=== PATIENT | female | born 1940 | race Caucasian/White ===

== ENCOUNTER 2018-02-20 19:37 | Inpatient (IN) ==
[2018-02-20 20:15] LABS: Basophils % 0.4 %; Eosinophils # 0.1 K/mcL (0.0-0.6); Hematocrit 40.5 % (35.3-44.9); Hemoglobin 13.8 g/dL (11.5-15.4); Immature Granulocytes % 0.5 % (0-4); Lymphocytes # 0.6 K/mcL (0.6-4.6); Lymphocytes % 6.6 %; Mean Corpuscular HGB Conc 34.1 g/dL (31.6-35.5); Mean Corpuscular Hemoglobin 31.5 pg (28.0-33.3); Mean Corpuscular Volume 92.5 fL (83.0-100.0); Mean Platelet Volume 10.5 fL (9.4-12.4); Monocytes # 0.5 K/mcL (0.0-1.3); Monocytes % 5.1 %; Platelet Count 230 K/mcL (140-400); Red Blood Count 4.38 M/mcL (3.82-4.97); Red Cell Distribution Width 12.6 % (11.5-14.5); Segmented Neutrophils % 86.4 %
[2018-02-20 20:20] LABS: INR 1.1
[2018-02-20] MEDS ORDERED: 0.9 % Sodium Chloride 1,000 ML IVC ONE (20:22)
[2018-02-20] MEDS ORDERED: Piperacillin/Tazobactam 3.375 GM in 0.9 % Sodium Chloride Mini Bag 100 ML IVPB ONE (20:36)
--- NOTE | 2018-02-20 20:40 | Emergency Department Note ---
Disposition Clinical Impression: Cellulitis of left foot Disposition: Admitted As Inpatient Condition: Good Referrals: Ricco Childers MD [Primary Care Provider] - Forms: ED Satisfaction Letter, Work/School Release Time of Disposition: 20:43 Fever HPI - General Chief Complaint: ED General Medical Stated Complaint: Fever Time Seen by Provider: 02/20/18 20:22 Source: patient Limitations: no limitations Nursing Notes Reviewed: Yes Vital Signs Reviewed: Yes - History of Present Illness HPI Narrative: 77 year old female presents to the ED with complaints of fever. She states that she was seen here on Friday for left foot cellulitis and was recommended for admission but declined admision and wanted to try outpatient ABX trial. It seems as thoguh she has failed outpatinet therapy. She states that the rednss although not as indurated is now streaking up the foot into the ankle and chen. PAtinet states that she developed a fever of 102.8F today and that she has develope mild nasuea. Patient states that she is agreeable to admission now. She is also experncing chillls with generalized weakness. States she has CKD3 and does have recurent UTIs but this is not what is happening now because she is very aware when she has a UTI - Related Data Home Medications Medication Instructions Recorded Confirmed ASA/Acetaminophn/Mag/Alh/Caff 04/27/16 Clonidine 04/27/16 Cranberry 04/27/16 Fish Oil 04/27/16 Losartan 04/27/16 Omeprazole 04/27/16 04/27/16 Oscal 04/27/16 Toprol Xl 04/27/16 Valium 04/27/16 Previous Rx's Medication Instructions Recorded Nitrofurantoin (BID) [Macrobid] 100 mg PO BID #10 capsule 04/27/16 Phenazopyridine HCl [Pyridium] 200 mg PO TID #6 tab 04/27/16 Clindamycin [Cleocin] 150 mg PO Q6HR #20 capsule 02/17/18 Doxycycline 100 mg PO BID #40 capsule 02/17/18 Allergies Allergy/AdvReac Type Severity Reaction Status Date / Time prednisone AdvReac Hypertensio Verified 04/18/16 08:46 n Bflzsdm-[id number] Reductase AdvReac Cramping Verified 04/18/16 08:46 Inhibitor of the [Statins] Muscles Constitutional: Reports: fever, chills, weakness. Denies: weight change Eyes: Denies: eye pain, eye discharge, vision change ENT ED: Denies: ear pain, throat pain, dental pain, hearing loss, epistaxis, congestion, dysphagia Cardiovascular: Denies: chest pain, palpitations, dyspnea on exertion, edema, syncope Respiratory: Denies: cough, dyspnea, wheezes, hemoptysis, stridor Gastrointestinal: Denies: abdominal pain, nausea, vomiting, diarrhea, constipation, hematemesis, melena, hematochezia Genitourinary: Denies: dysuria, frequency, hematuria, discharge Musculoskeletal: Reports: other (lef toot cellulitis). Denies: back pain, neck pain, arthralgia, myalgia Integumentary: Denies: rash, abrasion, lesions Neurological: Denies: headache, weakness, numbness, paresthesias, confusion, abnormal gait, vertigo Psychiatric: Denies: anxiety, depression, suicidal thoughts, homicidal thoughts , auditory hallucinations, visual hallucinations Endocrine: Denies: fatigue Hematological/Lymphatic: Denies: easy bleeding, easy bruising Allergic/Immunologic: Denies: facial swelling, urticaria Fever PMH - Past Medical History Medical history: Reports: hypertension, other Psychiatric history: Reports: no psych history - Social History Smoking Status: Never smoker Alcohol use: Reports: none Drug use: Reports: none Physical Exam - General Limitations: no limitations General appearance: alert, in no apparent distress - Head Head exam: atraumatic, normocephalic, normal inspection - Eye Eye exam: Present: normal appearance, PERRL, EOMI - Expanded Eye Exam Pupils: Bilateral: reactive - ENT ENT exam: normal exam, normal oropharynx, mucous membranes moist - Expanded ENT Exam External ear exam: Present: normal external inspection Mouth exam: Present: normal external inspection Teeth exam: Present: normal inspection Throat exam: Present: normal inspection - Neck Neck exam: Present: normal inspection, full ROM, trachea midline - Chest Chest inspection: Present: normal inspection, symmetric chest wall rise - Respiratory Respiratory exam: Present: normal lung sounds bilaterally - Cardiovascular Cardiovascular exam: Present: regular rate, normal rhythm, normal heart sounds - Abdominal Exam Abdominal exam: Present: soft, Non-Tender. Absent: tenderness, distention, guarding, rebound, rigidity - Extremities Exam Extremities exam: Present: normal inspection, full ROM. Absent: tenderness, pedal edema - Expanded Upper Extremity Exam Shoulder exam: Present: normal inspection, full ROM Arm exam: Present: normal inspection, full ROM Elbow exam: Present: normal inspection, full ROM Forearm/Wrist exam: Present: normal inspection, full ROM Hand exam: Present: normal inspection, full ROM Vascular exam: Normal: capillary refill, radial pulse - Expanded Lower Extremity Exam Hip/Pelvis exam: Present: normal inspection, full ROM Upper leg exam: Present: normal inspection, full ROM Knee exam: Present: normal inspection, full ROM Lower leg exam: Present: normal inspection, full ROM Ankle exam: Present: normal inspection, full ROM Foot/toe exam: Present: normal inspection, full ROM, tenderness, erythema 1 - induration not fluncutance with streaking up her left ankle and chen and into her toes Neurovascular/Tendon exam: Absent: motor deficit, sensory deficit, tendon deficit - Back Exam Back exam: Present: normal inspection, full ROM. Absent: tenderness - Neurological Exam Neurological exam: Present: alert, oriented X3 - Expanded Neurological Exam Patient oriented to: Present: person, place, time Coma Scale Eye Opening: Spontaneous Coma Scale Motor Response: Obeys Commands Coma Scale Verbal Response: Oriented Coma Scale Total: 15 - Psychiatric Psychiatric exam: Present: normal affect, normal mood - Skin Skin exam: Present: warm, dry, intact, normal color Course Course Narrative: we will start IVF, vanco, zosyn and then admit to medicine or left foot cellulitis. patient is agreeable to admission, Do not believe there is any area for to drain - Consultations Consultation #1: discussed case with Dr. Townsend and she accepts aptient to his service. Patient is agreeable to admission Time: 21:14 Vital Signs Temperature 99 F 02/20/18 19:43 Pulse Rate 88 02/20/18 19:43 Respiratory Rate 18 02/20/18 19:43 Blood Pressure 114/68 02/20/18 19:43 O2 Sat by Pulse Oximetry 95 02/20/18 19:43 Temperature 99 F 02/20/18 19:43 Pulse Rate 88 02/20/18 19:43 Respiratory Rate 18 02/20/18 19:43 Blood Pressure 114/68 02/20/18 19:43 O2 Sat by Pulse Oximetry 95 02/20/18 19:43 Oxygen Delivery Oxygen Delivery Room Air Fever - Medical Records Medical records reviewed: Yes I reviewed the patient's medical records. - Lab Data Lab results reviewed: Yes I reviewed the patient's lab results. Result diagrams: 02/20/18 19:48 02/20/18 19:48 Lab Results 02/20/18 02/20/18 02/20/18 Range/Units 19:48 19:48 19:48 WBC 9.3 (4.3-11.1) K/mcL RBC 4.38 (3.82-4.97) M/mcL Hgb 13.8 (11.5-15.4) g/dL Hct 40.5 (35.3-44.9) % MCV 92.5 (83.0-100.0) fL MCH 31.5 (28.0-33.3) pg MCHC 34.1 (31.6-35.5) g/dL RDW 12.6 (11.5-14.5) % Plt Count 230 (140-400) K/mcL MPV 10.5 (9.4-12.4) fL Immature Gran % 0.5 (0-4) % Seg Neutrophils % 86.4 % Lymphocytes % 6.6 % Monocytes % 5.1 % Eosinophils % 1.0 % Basophils % 0.4 % Neutrophils # 8.0 (1.6-8.9) K/mcL Lymphocytes # 0.6 (0.6-4.6) K/mcL Monocytes # 0.5 (0.0-1.3) K/mcL Eosinophils # 0.1 (0.0-0.6) K/mcL Basophils # 0.0 (0.0-0.2) K/mcL PT 12.0 (9.4-12.1) Seconds INR 1.1 APTT 27.7 (26.0-36.0) Seconds Sodium 133 L (136-145) mEq/L Potassium 3.5 (3.5-5.1) mEq/L Chloride 105 (98-107) mEq/L Carbon Dioxide 17 L (23-29) mEq/L BUN 8 (8-23) mg/dL Creatinine 1.40 H (0.60-1.20) mg/dL Est GFR ( Amer) 44 L (> 60) Est GFR (Non-Af Amer) 36 L (> 60) BUN/Creatinine Ratio 6 (6-26) Glucose 125 H (70-105) mg/dL Calculated Osmolality 276 L (280-300) Lactic Acid (0.5-2.2) mmol/L Calcium 9.6 (8.6-10.3) mg/dL Phosphorus (2.7-4.5) mg/dL Magnesium (1.6-2.6) mg/dL Total Bilirubin (0.3-1.0) mg/dL Direct Bilirubin (0.0-0.2) mg/dL Indirect Bilirubin (0.0-1.2) mg/dL AST (13-39) Units/L ALT (7-52) Units/L Alkaline Phosphatase (34-104) Units/L Troponin I < 0.03 (< 0.04) ng/mL B-Natriuretic Peptide (Less than 100) pg/mL Serum Total Protein (6.4-8.9) g/dL Albumin (3.5-5.7) g/dL Globulin (2.4-3.5) g/dL Albumin/Globulin Ratio (1.1-2.2) Lipase (11-82) Units/L 02/20/18 02/20/18 02/20/18 Range/Units 19:55 20:22 20:24 WBC (4.3-11.1) K/mcL RBC (3.82-4.97) M/mcL Hgb (11.5-15.4) g/dL Hct (35.3-44.9) % MCV (83.0-100.0) fL MCH (28.0-33.3) pg MCHC (31.6-35.5) g/dL RDW (11.5-14.5) % Plt Count (140-400) K/mcL MPV (9.4-12.4) fL Immature Gran % (0-4) % Seg Neutrophils % % Lymphocytes % % Monocytes % % Eosinophils % % Basophils % % Neutrophils # (1.6-8.9) K/mcL Lymphocytes # (0.6-4.6) K/mcL Monocytes # (0.0-1.3) K/mcL Eosinophils # (0.0-0.6) K/mcL Basophils # (0.0-0.2) K/mcL PT (9.4-12.1) Seconds INR APTT (26.0-36.0) Seconds Sodium (136-145) mEq/L Potassium (3.5-5.1) mEq/L Chloride (98-107) mEq/L Carbon Dioxide (23-29) mEq/L BUN (8-23) mg/dL Creatinine (0.60-1.20) mg/dL Est GFR ( Amer) (> 60) Est GFR (Non-Af Amer) (> 60) BUN/Creatinine Ratio (6-26) Glucose (70-105) mg/dL Calculated Osmolality (280-300) Lactic Acid 1.9 (0.5-2.2) mmol/L Calcium (8.6-10.3) mg/dL Phosphorus 1.7 L (2.7-4.5) mg/dL Magnesium 1.1 L (1.6-2.6) mg/dL Total Bilirubin 0.5 (0.3-1.0) mg/dL Direct Bilirubin 0.1 (0.0-0.2) mg/dL Indirect Bilirubin 0.4 (0.0-1.2) mg/dL AST 21 (13-39) Units/L ALT 12 (7-52) Units/L Alkaline Phosphatase 51 (34-104) Units/L Troponin I (< 0.04) ng/mL B-Natriuretic Peptide 121 H (Less than 100) pg/mL Serum Total Protein 7.1 (6.4-8.9) g/dL Albumin 4.1 (3.5-5.7) g/dL Globulin 3.0 (2.4-3.5) g/dL Albumin/Globulin Ratio 1.4 (1.1-2.2) Lipase 28 (11-82) Units/L - Radiology Data Radiology results reviewed: Yes I reviewed the patient's radiology results. - EKG Data EKG attestation: Yes I reviewed and interpreted this EKG. EKG results narrative: NSR with rate of 73. NO STEMI. normla intervals. no old ekg. 2052
[2018-02-20 20:43] LABS: Activated Partial Thrombo Time 27.7 Seconds (26.0-36.0); Troponin I < 0.03 ng/mL (< 0.04)
[2018-02-20 20:44] LABS: BUN/Creatinine Ratio 6 (6-26); Blood Urea Nitrogen 8 mg/dL (8-23); Calcium 9.6 mg/dL (8.6-10.3); Carbon Dioxide 17 mEq/L (23-29); Chloride 105 mEq/L (98-107); Glucose 125 mg/dL (70-105); Osmolality,Calculated 276 (280-300); Potassium 3.5 mEq/L (3.5-5.1); Sodium 133 mEq/L (136-145); eGFR For African Americans 44 (> 60); eGFR For Non-African Americans 36 (> 60)
[2018-02-20 21:01] LABS: Albumin 4.1 g/dL (3.5-5.7); Albumin/Globulin Ratio 1.4 (1.1-2.2); Bilirubin,Direct 0.1 mg/dL (0.0-0.2); Bilirubin,Indirect 0.4 mg/dL (0.0-1.2); Bilirubin,Total 0.5 mg/dL (0.3-1.0); Magnesium 1.1 mg/dL (1.6-2.6); Phosphorous 1.7 mg/dL (2.7-4.5); Total Protein 7.1 g/dL (6.4-8.9)
--- NOTE | 2018-02-20 21:41 | Internal Med History&Physical ---
Date of Encounter: 02/21/18 Time of Encounter: 09:00 Assessment and Plan (1) Cellulitis of left foot Status: Acute We will admit the patient to medical floor Start the patient on empiric antibiotics for left foot cellulitis Start patient on cautious IV hydration with isotonic saline Obtain blood cultures (2) Hypertension Status: Chronic We will continue home medication Qualifiers: Hypertension type: essential hypertension Qualified Code(s): I10 - Essential (primary) hypertension (3) Hypomagnesemia Status: Acute We will replace magnesium and continue to monitor (4) CKD (chronic kidney disease) Status: Chronic Creatinine is at baseline. Qualifiers: Chronic kidney disease stage: stage 3 (moderate) Qualified Code(s): N18.3 - Chronic kidney disease, stage 3 (moderate) (5) Metabolic acidosis Status: Chronic Most likely secondary to impaired ammoniagenesis and the setting of the daily (6) Chronic kidney disease-mineral and bone disorder Status: Chronic We would and obtain a vitamin D level as well as intact parathyroid hormone. (7) DVT prophylaxis Status: Resolved Start the patient on SCDs as well as heparin 5000 twice a day Internal Medicine - H&P: HPI Chief complaint: fever History of present illness: 77 year old female presents to the ED with cellulitis of the left foot that was diagnosed on last Friday and patient was supposed to be admitted for further evaluation and management however she declined admission and preferred to continue antibiotic as an outpatient. The patient came back to the ER with complaint of fever and worsening of left foot erythema, tenderness as well as chillls with generalized weakness. As per ER staff ultrasound was performed and revealed no signs of fluid collection or abscess formation she was started and antibiotics and was admitted to the hospital for further evaluation and management of left foot cellulitis Past Med Surg Social Fam HX - Past Medical History Medical history: hypertension, other Psychiatric history: no psych history - Social History Smoking Status: Never smoker Smokeless Tobacco Status: No Alcohol use: none Drug use: none Internal Medicine - H&P: Meds Amlodipine Besylate 10 mg PO DAILY 02/21/18 [History] Aspirin [Adult Aspirin Regimen] 81 mg PO DAILY 02/21/18 [History] Cholecalciferol (D-3) [Vitamin D] 5,000 unit PO DAILY 02/21/18 [History] Colesevelam HCl [Welchol] 1 pack PO DAILY 02/21/18 [History] Meclizine HCl [Verticalm] 25 mg PO TID PRN 02/21/18 [History] Saliva Stimulant [Biotene Moisturizing Rinse] 1 each PO TID PRN 02/21/18 [ History] Sucralfate [Carafate] 1 gm PO 0730,1630 02/21/18 [History] Sucralfate [Carafate] 2 gm PO HS 02/21/18 [History] Calcium Carbonate [Calcium] 500 mg PO BID 02/22/18 [History] Cholestyramine 8 gm PO BID 02/22/18 [History] Colesevelam HCl [Welchol] 3.75 gm PO DAILY 02/22/18 [History] Doxycycline Hyclate 02/22/18 [History] Losartan Potassium [Cozaar] 100 mg PO DAILY 02/22/18 [History] Metoprolol Succinate 200 mg PO DAILY 02/22/18 [History] Omeprazole [PriLOSEC] 40 mg PO DAILY 02/22/18 [History] cloNIDine HCl [CloNIDine HCl] 0.1 mg PO 02/22/18 [History] diazePAM [Valium] 5 mg PO Q6H PRN 02/22/18 [History] Amoxicillin/Clavulanate [Augmentin] 500 mg PO BIDWM #10 tablet 02/25/18 [Rx] 3 Allergy/AdvReac Type Severity Reaction Status Date / Time prednisone AdvReac Hypertensio Verified 04/18/16 08:46 n Vyrvlml-Qti-Yuj Reductase AdvReac Cramping Verified 04/18/16 08:46 Inhibitor of the [Statins] Muscles All Systems PM: A 10-system review of systems was performed and is negative for pertinent findings except as documented above in the HPI. - Constitutional Constitutional: fatigue, malaise, no chills, no fever(s), no night sweats - Cardiovascular Cardiovascular ROS IM: no chest pain, no diaphoresis, no dyspnea, no lightheadedness, no palpitations, no syncope - Respiratory Respiratory: no cough, no dyspnea, no wheezing, no excessive phlegm production - Gastrointestinal Gastrointestinal: nausea, no abdominal pain, no diarrhea, no hematemesis, no hematochezia, no melena, no vomiting - Genitourinary Genitourinary: no change in urinary stream, no dysuria, no flank pain, no hematuria - Integumentary Integumentary IM: erythema, new lesions, rash - Neurological Neurological ROS: no confusion, no convulsions, no focal weakness, no numbness, no tingling, no tremor(s) - Constitutional Vitals: Temp Pulse Resp BP Pulse Ox 99 F 88 18 114/68 95 02/20/18 19:43 02/20/18 19:43 02/20/18 19:43 02/20/18 19:43 02/20/18 19:43 General appearance: Present: A&O X 3 - Head Head exam: Present: atraumatic, normocephalic - Eye Eye exam: Present: PERRL, conjuntiva pink, sclera anicteric Pupils: Present: PERRL - Neck Neck exam general surgery: Present: supple, trachea midline. Absent: lymphadenopathy - Respiratory Respiratory exam: Present: CTAB. Absent: accessory muscle use, rales, rhonchi, wheezes - Cardiovascular Cardiovascular exam: Present: RRR, +S1, +S2. Absent: diastolic murmur, gallop, rubs, systolic murmur - GI/Abdominal GI/Abdominal exam: Present: normal bowel sounds, soft, no peritoneal signs. Absent: distended, tenderness - Extremities Exam Extremities exam: Present: warm, radial pulses palpable and symmetrical. Absent : calf tenderness, cyanotic, pedal edema Internal Med - H&P Results - Labs CBC & Chem 7: 02/25/18 01:10 02/25/18 01:10
[2018-02-20] MEDS ORDERED: Acetaminophen 325 MG TABLET PO PRN (22:16)
[2018-02-20] MEDS ORDERED: Naloxone 0.4 MG/ML INJ IVP PRN (22:16)
[2018-02-20] MEDS: 0.9 % Sodium Chloride 1,000 ML IVC SCH (22:55)
[2018-02-21] MEDS: *HR* Heparin 5,000 UNIT/ML VIAL SQ SCH ×2 (05:32→18:20)
[2018-02-21] MEDS: Piperacillin/Tazobactam 3.375 GM in 0.9 % Sodium Chloride Mini Bag 100 ML IVPB SCH (05:32)
[2018-02-21 06:41] LABS: Basophils % 0.5 %; Eosinophils # 0.1 K/mcL (0.0-0.6); Eosinophils % 1.5 %; Hematocrit 32.4 % (35.3-44.9); Immature Granulocytes % 0.3 % (0-4); Lymphocytes # 1.6 K/mcL (0.6-4.6); Mean Corpuscular Volume 91.3 fL (83.0-100.0); Mean Platelet Volume 11.1 fL (9.4-12.4); Monocytes # 0.6 K/mcL (0.0-1.3); Monocytes % 9.6 %; Neutrophils # 4.1 K/mcL (1.6-8.9); Platelet Count 159 K/mcL (140-400); Red Blood Count 3.55 M/mcL (3.82-4.97); Red Cell Distribution Width 12.6 % (11.5-14.5); Segmented Neutrophils % 63.1 %
[2018-02-21 06:49] LABS: INR 1.1; Prothrombin Time 11.4 Seconds (9.4-12.1)
[2018-02-21 06:51] LABS: Activated Partial Thrombo Time 32.6 Seconds (26.0-36.0)
[2018-02-21 06:59] LABS: Albumin 3.2 g/dL (3.5-5.7); Albumin/Globulin Ratio 1.2 (1.1-2.2); Bilirubin,Total 0.6 mg/dL (0.3-1.0); Calcium 8.8 mg/dL (8.6-10.3); Chol/HDL Ratio 4.8 (0-4.9); Globulin 2.7 g/dL (2.4-3.5); Magnesium 1.8 mg/dL (1.6-2.6); Phosphorous 2.6 mg/dL (2.7-4.5); Potassium 3.5 mEq/L (3.5-5.1); Total Protein 5.9 g/dL (6.4-8.9)
[2018-02-21] MEDS: 0.9 % Sodium Chloride 1,000 ML IVC SCH (08:39)
--- NOTE | 2018-02-21 13:57 | Internal Med Progress Note ---
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 There was also noted mild dorsal midfoot subcutaneous edemaThere was no osteomyelitis Continue Vancomycin and Zosyn renally dosed. (2) CKD (chronic kidney disease) Current Visit: Yes Status: Acute Qualifiers: Chronic kidney disease stage: stage 3 (moderate) Qualified Code(s): N18.3 - Chronic kidney disease, stage 3 (moderate) (3) Chronic kidney disease-mineral and bone disorder Current Visit: Yes Status: Acute Assessment and plan: Renally dose medications, CrCl currently 14 (4) Hypertension Current Visit: Yes Status: Acute Assessment and plan: Resume home medications Qualifiers: Hypertension type: essential hypertension Qualified Code(s): I10 - Essential (primary) hypertension (5) Metabolic acidosis Current Visit: Yes Status: Acute (6) DVT prophylaxis Current Visit: Yes Status: Acute Assessment and plan: Heparin - Subjective Interval history: No acute events. Patient does complain of flushing in her face that she says happens when she doesn't take her blood pressure medications. Vitals were taken at bedside and BP and HR were normal. She denies fevers/chills, n/v - Constitutional Vitals: Temp Pulse Resp BP Pulse Ox 98.4 F 75 15 120/68 97 02/21/18 10:46 02/21/18 10:46 02/21/18 10:46 02/21/18 10:46 02/21/18 10:46 General appearance: Present: A&O X 3 - Head Head exam: Present: atraumatic, normocephalic - Eye Eye exam: Present: PERRL, conjuntiva pink, sclera anicteric Pupils: Present: PERRL - Neck Neck exam general surgery: Present: supple, trachea midline. Absent: lymphadenopathy - Respiratory Respiratory exam: Present: CTAB. Absent: accessory muscle use, rales, rhonchi, wheezes - Cardiovascular Cardiovascular exam: Present: RRR, +S1, +S2. Absent: diastolic murmur, gallop, rubs, systolic murmur - GI/Abdominal GI/Abdominal exam: Present: normal bowel sounds, soft, no peritoneal signs. Absent: distended, tenderness - Extremities Exam Extremities exam: Present: warm, radial pulses palpable and symmetrical. Absent : calf tenderness, cyanotic, pedal edema Additional comments: Left foot with dorsal surface with erythema and edema some tenderness noted. - Neurological Exam Neurological exam: Present: CN II-XII intact, oriented X3, no focal deficits. Absent: pronater drift, facial droop, speech deficit - Skin Skin exam: Present: dry, intact Internal Medicine: Result - Labs CBC & Chem 7: 02/21/18 05:49 02/21/18 05:49 Labs: Short CBC 02/21/18 Range/Units 05:49 WBC 6.6 (4.3-11.1) K/mcL Hgb 11.0 L D (11.5-15.4) g/dL Hct 32.4 L (35.3-44.9) % Plt Count 159 (140-400) K/mcL Neutrophils # 4.1 (1.6-8.9) K/mcL BMP 02/21/18 05:49 Sodium 134 L Potassium 3.5 Chloride 106 Carbon Dioxide 23 BUN 8 Creatinine 1.32 H Glucose 106 H Calcium 8.8 Liver Function 02/21/18 Range/Units 05:49 Total Bilirubin 0.6 (0.3-1.0) mg/dL AST 21 (13-39) Units/L ALT 15 (7-52) Units/L Alkaline Phosphatase 42 (34-104) Units/L Albumin 3.2 L (3.5-5.7) g/dL - ABG Interpretation ABG results: PT/INR, D-dimer PT 11.4 Seconds (9.4-12.1) 02/21/18 05:49 Consult Discharge Plan - Plan Referrals: Ricco Childers MD [Primary Care Provider] -
[2018-02-21] MEDS ORDERED: Metoprolol XL (24 HR) Succ 50 MG TAB.ER.24H PO ONE (14:15)
[2018-02-21] MEDS ORDERED: cloNIDine HCl 0.1 MG TABLET PO ONE (14:16)
[2018-02-21] MEDS ORDERED: amLODIPine 5 MG TABLET PO ONE (14:16)
[2018-02-21] MEDS ORDERED: Piperacillin/Tazobactam 3.375 GM in 0.9 % Sodium Chloride Mini Bag 100 ML IVPB SCH (16:00)
[2018-02-21] MEDS ORDERED: Sucralfate 1 GM TABLET PO SCH (16:30)
[2018-02-21] MEDS ORDERED: diazePAM 5 MG TABLET PO SCH (21:00)
[2018-02-21] MEDS: Sucralfate 1 GM TABLET PO SCH (21:09)
--- NOTE | 2018-02-21 23:59 | Event Note ---
Date of Encounter: 02/21/18 Time of Encounter: 22:50 Alerted by pts. nurse the patient did ambulate to the bathroom and reported diarrhea and feeling weak. Patient here for cellulitis of the left foot. Vital signs: BP 1:30/74, HR 71, SPO2 100% room air, temp 99.0F. EKG showed sinus rhythm with nonspecific ST and T-wave abnormality. Went to see patient who was resting in bed. Patient reported brief chest pain with radiation to left neck which have both resolved. Patient stated she was also short of breath after returning from the bathroom. Patient denied symptoms currently. Patient was instructed to alert nurse if symptoms returned or she became short of breath so nurse could alert provider. Pt. verbalized understanding. Pt. to be monitored closely.
[2018-02-22] MEDS: *HR* Heparin 5,000 UNIT/ML VIAL SQ SCH ×2 (06:21→18:31)
[2018-02-22 08:22] LABS: Basophils % 0.9 %; Eosinophils # 0.2 K/mcL (0.0-0.6); Eosinophils % 3.5 %; Hematocrit 35.9 % (35.3-44.9); Hemoglobin 12.3 g/dL (11.5-15.4); Immature Granulocytes % 0.2 % (0-4); Lymphocytes # 1.7 K/mcL (0.6-4.6); Lymphocytes % 39.1 %; Mean Corpuscular HGB Conc 34.3 g/dL (31.6-35.5); Mean Corpuscular Hemoglobin 31.2 pg (28.0-33.3); Mean Corpuscular Volume 91.1 fL (83.0-100.0); Monocytes # 0.3 K/mcL (0.0-1.3); Monocytes % 7.6 %; Neutrophils # 2.1 K/mcL (1.6-8.9); Platelet Count 194 K/mcL (140-400); Red Blood Count 3.94 M/mcL (3.82-4.97); Red Cell Distribution Width 12.7 % (11.5-14.5); Segmented Neutrophils % 48.7 %
[2018-02-22 08:57] LABS: Calcium 8.9 mg/dL (8.6-10.3); Potassium 3.3 mEq/L (3.5-5.1)
[2018-02-22] MEDS: Cholecalciferol (D-3) 1,000 UNIT TABLET PO SCH (09:36)
[2018-02-22] MEDS: Aspirin Enteric Coated 81 MG Tablet PO SCH (09:37)
[2018-02-22] MEDS ORDERED: cloNIDine HCl 0.1 MG TABLET PO SCH (10:00)
[2018-02-22] MEDS: diazePAM 5 MG TABLET PO SCH ×4 (11:17→21:04)
[2018-02-22] MEDS ORDERED: cloNIDine HCl 0.1 MG TABLET PO ONE (11:30)
--- NOTE | 2018-02-22 13:18 | Internal Med Progress Note ---
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 There was also noted mild dorsal midfoot subcutaneous edemaThere was no osteomyelitis Continue Vancomycin and Zosyn renally dosed. Tenderness improved but erythema appears slightly worse, no edema. Pulses palpable and equal (2) CKD (chronic kidney disease) Current Visit: Yes Status: Acute Qualifiers: Chronic kidney disease stage: stage 3 (moderate) Qualified Code(s): N18.3 - Chronic kidney disease, stage 3 (moderate) (3) Chronic kidney disease-mineral and bone disorder Current Visit: Yes Status: Acute Assessment and plan: Renally dose medications, Cr CL 38 (4) Hypertension Current Visit: Yes Status: Acute Assessment and plan: Resume home medications Qualifiers: Hypertension type: essential hypertension Qualified Code(s): I10 - Essential (primary) hypertension (5) Metabolic acidosis Current Visit: Yes Status: Acute (6) DVT prophylaxis Current Visit: Yes Status: Acute Assessment and plan: Heparin - Subjective Interval history: No acute events. - Constitutional Vitals: Temp Pulse Resp BP Pulse Ox 98.5 F 82 15 165/75 95 02/22/18 10:53 02/22/18 10:53 02/22/18 10:53 02/22/18 10:53 02/22/18 10:53 General appearance: Present: A&O X 3 - Head Head exam: Present: atraumatic, normocephalic - Eye Eye exam: Present: PERRL, conjuntiva pink, sclera anicteric Pupils: Present: PERRL - Neck Neck exam general surgery: Present: supple, trachea midline. Absent: lymphadenopathy - Respiratory Respiratory exam: Present: CTAB. Absent: accessory muscle use, rales, rhonchi, wheezes - Cardiovascular Cardiovascular exam: Present: RRR, +S1, +S2. Absent: diastolic murmur, gallop, rubs, systolic murmur - GI/Abdominal GI/Abdominal exam: Present: normal bowel sounds, soft, no peritoneal signs. Absent: distended, tenderness - Extremities Exam Extremities exam: Present: warm, radial pulses palpable and symmetrical. Absent : calf tenderness, cyanotic, pedal edema Additional comments: Left foot dorsal aspect erythematous about same as yesterday. Tenderness somewhat improved. - Neurological Exam Neurological exam: Present: CN II-XII intact, oriented X3, no focal deficits. Absent: pronater drift, facial droop, speech deficit - Skin Skin exam: Present: dry, intact Internal Medicine: Result - Labs CBC & Chem 7: 02/22/18 07:50 02/22/18 07:50 Labs: Short CBC 02/22/18 Range/Units 07:50 WBC 4.3 (4.3-11.1) K/mcL Hgb 12.3 (11.5-15.4) g/dL Hct 35.9 (35.3-44.9) % Plt Count 194 (140-400) K/mcL Neutrophils # 2.1 (1.6-8.9) K/mcL BMP 02/22/18 07:50 Sodium 141 Potassium 3.3 L Chloride 107 Carbon Dioxide 26 BUN 8 Creatinine 1.31 H Glucose 100 Calcium 8.9 Cardiac Enzymes 02/21/18 Range/Units 23:03 Troponin I < 0.03 (< 0.04) ng/mL - ABG Interpretation ABG results: PT/INR, D-dimer PT 11.4 Seconds (9.4-12.1) 02/21/18 05:49 Consult Discharge Plan - Plan Referrals: Ricco Childers MD [Primary Care Provider] -
[2018-02-22] MEDS ORDERED: Piperacillin/Tazobactam 3.375 GM in 0.9 % Sodium Chloride Mini Bag 100 ML IVPB SCH (14:00)
[2018-02-22] MEDS: amLODIPine 5 MG TABLET PO SCH (18:30)
[2018-02-22] MEDS: cloNIDine HCl 0.1 MG TABLET PO SCH ×2 (18:33→18:45)
[2018-02-22] MEDS: Sucralfate 1 GM TABLET PO SCH ×3 (18:33→21:10)
[2018-02-22] MEDS ORDERED: Metoprolol XL (24 HR) Succ 50 MG TAB.ER.24H PO SCH (19:00)
[2018-02-22] MEDS ORDERED: Saliva Stimulant 100ml BOTTLE PO PRN (19:51)
[2018-02-22] MEDS: Metoprolol XL (24 HR) Succ 50 MG TAB.ER.24H PO SCH (20:16)
[2018-02-22 23:27] LABS: Hematocrit 38.1 % (35.3-44.9); Mean Corpuscular HGB Conc 34.1 g/dL (31.6-35.5); Mean Corpuscular Hemoglobin 31.4 pg (28.0-33.3); Mean Platelet Volume 10.5 fL (9.4-12.4); Platelet Count 197 K/mcL (140-400); Red Blood Count 4.14 M/mcL (3.82-4.97); Red Cell Distribution Width 12.6 % (11.5-14.5)
[2018-02-22 23:34] LABS: Prothrombin Time 10.6 Seconds (9.4-12.1)
[2018-02-22 23:37] LABS: Activated Partial Thrombo Time 36.5 Seconds (26.0-36.0)
[2018-02-23] MEDS: Heparin 25,000 UNIT/500 ML D5W 25,000 UNIT/500 ML BAG IVC SCH (00:08)
--- NOTE | 2018-02-23 00:39 | Event Note ---
Date of Encounter: 02/22/18 Time of Encounter: 20:22 Notified by patient's nurse the patient had developed new onset of A. fib with RVR with heart rate of 155. Patient had refused medications earlier due to medications not begin ministered on her schedule at home, but took Lopressor 200 mg shortly after onset of A. fib. Stat EKG ordered. Order to monitor patient vital signs every 15 minutes for the next hour. Heart rate remained from 120s to 130s. Went to assess patient who is resting in bed. On exam, patient had atrial fibrillation but denied chest pain. Echocardiogram ordered, Cardiology ordered for new onset of A. fib, timed troponins ordered, and ow- dose heaprin drip ordered. Discussed plan w/Dr. Barrera who agrees w/plan. Plan also discussed w/pt. and pts. son who expressed understanding and are in agreement w/plan of care.
[2018-02-23] MEDS ORDERED: *HR* Heparin 5,000 UNIT/ML VIAL IVP PRN ×2 (07:30)
[2018-02-23] MEDS ORDERED: Heparin 25,000 UNIT/500 ML D5W 25,000 UNIT/500 ML BAG IVC SCH (07:30)
[2018-02-23 07:35] LABS: Hematocrit 38.3 % (35.3-44.9); Hemoglobin 12.7 g/dL (11.5-15.4); Immature Granulocytes % 0.4 % (0-4); Immature Platelets 5.5 % (1.1-6.1); Mean Corpuscular HGB Conc 33.2 g/dL (31.6-35.5); Mean Corpuscular Hemoglobin 31.1 pg (28.0-33.3); Mean Corpuscular Volume 93.9 fL (83.0-100.0); Mean Platelet Volume 11.1 fL (9.4-12.4); Monocytes % 8.3 %; Platelet Count 199 K/mcL (140-400); Red Blood Count 4.08 M/mcL (3.82-4.97); Red Cell Distribution Width 12.7 % (11.5-14.5); Segmented Neutrophils % 44.4 %
[2018-02-23 07:36] LABS: Basophils # 0.1 K/mcL (0.0-0.2); Basophils % 0.9 %; Eosinophils # 0.2 K/mcL (0.0-0.6); Lymphocytes # 2.2 K/mcL (0.6-4.6); Monocytes # 0.4 K/mcL (0.0-1.3); Neutrophils # 2.4 K/mcL (1.6-8.9); Nucleated Red Blood Cells 0.8 /100 WBC (0)
[2018-02-23 07:51] LABS: Calcium 9.2 mg/dL (8.6-10.3); Potassium 3.7 mEq/L (3.5-5.1)
[2018-02-23] MEDS: Aspirin Enteric Coated 81 MG Tablet PO SCH (08:10)
[2018-02-23] MEDS: diazePAM 5 MG TABLET PO SCH ×4 (08:10→20:59)
[2018-02-23] MEDS: cloNIDine HCl 0.1 MG TABLET PO SCH ×2 (08:10→16:58)
[2018-02-23] MEDS: Cholecalciferol (D-3) 1,000 UNIT TABLET PO SCH (08:11)
[2018-02-23] MEDS ORDERED: Piperacillin/Tazobactam 3.375 GM in 0.9 % Sodium Chloride Mini Bag 100 ML IVPB SCH (11:00)
--- NOTE | 2018-02-23 11:06 | Cardiology Consult Note ---
<Shahla Cummins - Last Filed: 02/23/18 13:35> Date of Encounter: 02/23/18 Time of Encounter: 11:00 Assessment and Plan (1) A-fib Current Visit: Yes Status: Acute New A.fib with RVR yesterday evening. She stated she felt the palpitations and chest pain that was squeezing like across her chest. It lasted 5min. She then had an EKG that demonstrated A.fib RVR. She was given lopressor 200mg. Upon looking at medications given and per event note the patient did not have her loppressor earlier in the day due to her apparently refusing. Also 2 days ago she only had half the dose of her metoprolol. May be rebound tachycardia due to not taking Toprol 200mg. -02/22/2018 EKG: HR 109 A.fib RVR, ST depression V3/V4/ V5 -02/23/2018 EKG: HR 62 NSR, ST depression V3/V4/ V5 -troponin <0.03 x4 -03/2016 Nuclear stress: no ischemia -TTE 02/23/2018: LVEF 60-65%, no pulmonary hypertension, no significant valvular dysfunction -CHADSVASC 6 (female, age, HTN, TIA) -Anticoagulation was discussed with the patient since CHADSVASC score is 6 which puts her at higher risk for stroke. She was agreeable to start anticoagulation upon discharge. The risks such as bleeding and the benefits were discussed with her. Will get manley check on anticoagulation medications. -order pharm nuclear stress test -agree with heparin -NPO midnight Qualifiers: Qualified Code(s): I48.91 - Unspecified atrial fibrillation (2) Cellulitis Current Visit: No Status: Acute Patient is being treated for cellulitis of left foot with vancomycin and zosyn -management per primary team Qualifiers: Site of cellulitis: extremity Site of cellulitis of extremity: lower extremity Laterality: left Qualified Code(s): L03.116 - Cellulitis of left lower limb (3) CKD (chronic kidney disease) Current Visit: Yes Status: Acute Patient reports CKD stage 3 that she follows with Dr. Iliana Farrell 1.22 (at baseline) -management per primary team Qualifiers: Chronic kidney disease stage: stage 3 (moderate) Qualified Code(s): N18.3 - Chronic kidney disease, stage 3 (moderate) (4) Hypertension Current Visit: Yes Status: Acute History of HTN -continue norvasc, asa, losartan, toprol Qualifiers: Hypertension type: essential hypertension Qualified Code(s): I10 - Essential (primary) hypertension Discussion w patient/family: The assessment and plan as outlined above was discussed with the patient and/or family members who expressed understanding and agreement. All questions were answered. Thank you for involving us in the care of your patient. Please call with any questions. History of Present Illness Consult date: 02/23/18 Requesting physician: Yohannes Lechuga Consult reason: new A.fib RVR Chief complaint: cellulitis of right foot History of present illness: Ms. Lopez is a 77 year old female with PMH HTN, CKD stage 3 who presented to [facility] for cellulitis of left foot. She was started on vancomycin and zosyn. Yesterday evening she stated she felt the palpitations and chest pain that was squeezing like across her chest. It lasted 5min. She then had an EKG that demonstrated A.fib RVR. She was given lopressor 200mg. Upon looking at medications given that day and per event note the patient did not have her loppressor earlier in the day due to her apparently refusing. Also 2 days ago she only received half the dose of her metoprolol. She stated she has never had an NE, blood clot. Her manager school is Dr. Velasco. she She stated she is a non- smoker. Family history of father having an NE at 64yo. Past Med Surg Social Fam HX - Past Medical History Medical history: hypertension, other Psychiatric history: no psych history - Social History Smoking Status: Never smoker Smokeless Tobacco Status: No Alcohol use: none Drug use: none Medications and Allergies Amlodipine Besylate 10 mg PO DAILY 02/21/18 [History] Aspirin [Adult Aspirin Regimen] 81 mg PO DAILY 02/21/18 [History] Cholecalciferol (D-3) [Vitamin D] 5,000 unit PO DAILY 02/21/18 [History] Colesevelam HCl [Welchol] 1 pack PO DAILY 02/21/18 [History] Meclizine HCl [Verticalm] 25 mg PO TID PRN 02/21/18 [History] Saliva Stimulant [Biotene Moisturizing Rinse] 1 each PO TID PRN 02/21/18 [ History] Sucralfate [Carafate] 1 gm PO 0730,1630 02/21/18 [History] Sucralfate [Carafate] 2 gm PO HS 02/21/18 [History] Calcium Carbonate [Calcium] 500 mg PO BID 02/22/18 [History] Cholestyramine 8 gm PO BID 02/22/18 [History] Clindamycin [Cleocin] 150 mg PO Q6HR 02/22/18 [History] Colesevelam HCl [Welchol] 3.75 gm PO DAILY 02/22/18 [History] Doxycycline Hyclate 02/22/18 [History] Losartan Potassium [Cozaar] 100 mg PO DAILY 02/22/18 [History] Metoprolol Succinate 200 mg PO DAILY 02/22/18 [History] Omeprazole [PriLOSEC] 40 mg PO DAILY 02/22/18 [History] cloNIDine HCl [CloNIDine HCl] 0.1 mg PO 02/22/18 [History] diazePAM [Valium] 5 mg PO Q6H PRN 02/22/18 [History] 3 Allergy/AdvReac Type Severity Reaction Status Date / Time prednisone AdvReac Hypertensio Verified 04/18/16 08:46 n Oyouqvh-Ewt-Ryn Reductase AdvReac Cramping Verified 04/18/16 08:46 Inhibitor of the [Statins] Muscles All Systems Review: The remainder of the systems were reviewed and are negative - Constitutional Constitutional: no chills, no fever(s), no headache(s) - EENT Eyes: no blurred vision - Cardiovascular Cardiovascular: chest pain at rest, palpitations, no diaphoresis, no leg edema, no lightheadedness - Respiratory Respiratory: no cough, no dyspnea - Gastrointestinal Gastrointestinal: no abdominal pain, no nausea - Musculoskeletal Musculoskeletal: no abnormal gait - Integumentary Integumentary: no erythema - Neurological Neurological: no abnormal speech Physical Examination General: Conversant, No Apparent Distress HEENT: Atraumatic, Mucus Membranes Moist Neck: No JVD Cardiac: Reg Rate and Rhythm, Normal S1 and S2 Lungs: Normal Breath Sounds, No Wheeze, Rales, Rhonchi Neuro: Alert and responsive Abdomen: Soft, Non-Tender Skin: No rashes noted on visualized skin Musculoskeletal: No Chest Wall Tenderness Extremities: No Edema Results 02/23/18 05:49 02/23/18 05:49 Lab Results 02/22/18 02/22/18 02/22/18 23:11 23:11 23:11 WBC 8.0 D Hgb 13.0 Hct 38.1 Plt Count 197 INR 1.0 APTT 36.5 H Sodium Potassium Chloride Carbon Dioxide BUN Creatinine Glucose Calcium Troponin I < 0.03 02/23/18 02/23/18 02/23/18 05:49 05:49 05:49 WBC 5.3 Hgb 12.7 Hct 38.3 Plt Count 199 INR APTT Sodium 140 Potassium 3.7 Chloride 104 Carbon Dioxide 27 BUN 7 L Creatinine 1.22 H Glucose 114 H Calcium 9.2 Troponin I < 0.03 02/23/18 02/23/18 02/23/18 05:49 09:48 09:48 WBC Hgb Hct Plt Count INR APTT 90.2 H D 95.1 H Sodium Potassium Chloride Carbon Dioxide BUN Creatinine Glucose Calcium Troponin I < 0.03 Consult Discharge Plan - Plan Referrals: Ricco Childers MD [Primary Care Provider] - <Tre Jones - Last Filed: 02/23/18 14:44> Date of Encounter: 02/23/18 - Attending Attestation I examined this patient and my medical decision-making was reviewed with the Resident Physician. I agree with the documented findings, disposition and treatment plan as described except to the extent set forth below. 77 YOF with cellulitis found to have PAF complained of chest pain with RVR. New onset PAF now in NSR with lat ST depressions. EF preserved on last ECHO and Stress test 2016 also nml. Chest pain and PAF NST due to ST lat depressions AC due to elevated ChadsVasc (R/B/A d/w pt and she agrees to proceed with AC after stress test) Assessment and Plan Discussion w patient/family: The assessment and plan as outlined above was discussed with the patient and/or family members who expressed understanding and agreement. All questions were answered. Thank you for involving us in the care of your patient. Please call with any questions. History of Present Illness History of present illness: Ms. Lopez is a 77 year old female All Systems Review: The remainder of the systems were reviewed and are negative Physical Examination Vital Signs, Last 4 Hours Temp Pulse Resp BP Pulse Ox 02/23/18 13:04 97.5 F L 63 16 152/82 99 Results 02/23/18 05:49 02/23/18 05:49 Lab Results 02/22/18 02/22/18 02/22/18 23:11 23:11 23:11 WBC 8.0 D Hgb 13.0 Hct 38.1 Plt Count 197 INR 1.0 APTT 36.5 H Sodium Potassium Chloride Carbon Dioxide BUN Creatinine Glucose Calcium Troponin I < 0.03 02/23/18 02/23/18 02/23/18 05:49 05:49 05:49 WBC 5.3 Hgb 12.7 Hct 38.3 Plt Count 199 INR APTT Sodium 140 Potassium 3.7 Chloride 104 Carbon Dioxide 27 BUN 7 L Creatinine 1.22 H Glucose 114 H Calcium 9.2 Troponin I < 0.03 02/23/18 02/23/18 02/23/18 05:49 09:48 09:48 WBC Hgb Hct Plt Count INR APTT 90.2 H D 95.1 H Sodium Potassium Chloride Carbon Dioxide BUN Creatinine Glucose Calcium Troponin I < 0.03
--- NOTE | 2018-02-23 12:27 | Electrocardiograph Report ---
[address] [place], [place] [address] Test Date: 2018-02-20 Pat Name: Sherry Lopez Department: 102 Room: 3A45 Gender: F Medical Sonographer: Tmr : 1940 Requested By: Enma Stephens Order Number: [id number] Reading MD: Levy Velasco Measurements Intervals [place] Rate: 73 P: 39 NE: 167 QRS: 4 QRSD: 93 T: 26 QT: 364 QTc: 390 Interpretive Statements SINUS RHYTHM BASELINE ARTIFACT Electronically Signed On 02-23-2018 12:25:49 EDT by Levy Velasco
--- NOTE | 2018-02-23 14:44 | Electrocardiograph Report ---
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
--- NOTE | 2018-02-23 14:48 | Electrocardiograph Report ---
[address] [place], [place] [address] Test Date: 2018-02-22 Pat Name: Sherry Lopez Department: 115 Room: 3A45 Gender: F Blueprint Reader: [id number] : 1940 Requested By: Dionicio Lechuga Order Number: [id number] Reading MD: Levy Velasco Measurements Intervals [place] Rate: 122 P: AR: 0 QRS: 28 QRSD: 96 T: 218 QT: 260 QTc: 333 Interpretive Statements ATRIAL FIBRILLATION WITH RAPID VENTRICULAR RESPONSE WITH ABERRANT CONDUCTION OR VENTRICULAR PREMATURE COMPLEXES ANTERIOR ISCHEMIA Electronically Signed On 02-23-2018 14:47:04 EDT by Levy Velasco
--- NOTE | 2018-02-23 14:48 | Electrocardiograph Report ---
[address] [place], [place] [address] Test Date: 2018-02-22 Pat Name: Sherry Lopez Department: 115 Room: 3A45 Gender: F System Dispatcher: [id number] : 1940 Requested By: Dionicio Lechuga Order Number: [id number] Reading MD: Levy Velasco Measurements Intervals [place] Rate: 109 P: VT: 0 QRS: 9 QRSD: 91 T: 7 QT: 356 QTc: 420 Interpretive Statements ATRIAL FIBRILLATION WITH RAPID VENTRICULAR RESPONSE Electronically Signed On 02-23-2018 14:47:13 EDT by Levy Velasco
--- NOTE | 2018-02-23 14:59 | Electrocardiograph Report ---
[address] [place], [place] [address] Test Date: 2018-02-23 Pat Name: Sherry Lopez Department: 115 Room: 3A45 Gender: F Cut Out Operator: [id number] : 1940 Requested By: Shahla Cummins Order Number: [id number] Reading MD: Levy Velasco Measurements Intervals [place] Rate: 62 P: 3 VA: 185 QRS: 11 QRSD: 89 T: 10 QT: 435 QTc: 440 Interpretive Statements SINUS RHYTHM Electronically Signed On 02-23-2018 14:57:40 EDT by Levy Velasco
--- NOTE | 2018-02-23 15:00 | Internal Med Progress Note ---
Date of Encounter: 02/23/18 Time of Encounter: 14:56 - Assessment and plan (1) New onset atrial fibrillation Current Visit: Yes Status: Acute Assessment and plan: Currently NSR. 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 There was also noted mild dorsal midfoot subcutaneous edemaThere was no osteomyelitis Continue Vancomycin and Zosyn renally dosed. 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 She was started on heparin drip. Cardiology consulted. Echocardiogram done showed normal EF, with dilated left atrium. Stress test pending. On heparin drip. - Constitutional Vitals: Temp Pulse Resp BP Pulse Ox 98.5 F 72 16 137/74 97 02/23/18 14:52 02/23/18 14:52 02/23/18 14:52 02/23/18 14:52 02/23/18 14:52 General appearance: Present: A&O X 3 - Head Head exam: Present: atraumatic, normocephalic - Eye Eye exam: Present: PERRL, conjuntiva pink, sclera anicteric Pupils: Present: PERRL - Neck Neck exam general surgery: Present: supple, trachea midline. Absent: lymphadenopathy - Respiratory Respiratory exam: Present: CTAB. Absent: accessory muscle use, rales, rhonchi, wheezes - Cardiovascular Cardiovascular exam: Present: RRR, +S1, +S2. Absent: diastolic murmur, gallop, rubs, systolic murmur - GI/Abdominal GI/Abdominal exam: Present: normal bowel sounds, soft, no peritoneal signs. Absent: distended, tenderness - Extremities Exam Extremities exam: Present: warm, radial pulses palpable and symmetrical. Absent : calf tenderness, cyanotic, pedal edema - Neurological Exam Neurological exam: Present: CN II-XII intact, oriented X3, no focal deficits. Absent: pronater drift, facial droop, speech deficit - Skin Skin exam: Present: dry, intact Internal Medicine: Result - Labs CBC & Chem 7: 02/23/18 05:49 02/23/18 05:49 Labs: Short CBC 02/22/18 02/23/18 Range/Units 23:11 05:49 WBC 8.0 D 5.3 (4.3-11.1) K/mcL Hgb 13.0 12.7 (11.5-15.4) g/dL Hct 38.1 38.3 (35.3-44.9) % Plt Count 197 199 (140-400) K/mcL Neutrophils # 2.4 (1.6-8.9) K/mcL BMP 02/23/18 05:49 Sodium 140 Potassium 3.7 Chloride 104 Carbon Dioxide 27 BUN 7 L Creatinine 1.22 H Glucose 114 H Calcium 9.2 Cardiac Enzymes 02/22/18 02/23/18 02/23/18 Range/Units 23:11 05:49 09:48 Troponin I < 0.03 < 0.03 < 0.03 (< 0.04) ng/mL - ABG Interpretation ABG results: PT/INR, D-dimer PT 10.6 Seconds (9.4-12.1) 02/22/18 23:11 - Impressions Impressions Echocardiogram 02/23/18 23:00 Impressions: LVEF 60-65%. No pulmonary hypertension. Moderately dilated left atrium. No significant valvular dysfunction. Left Ventricular Wall Motion: Rest Echo Findings All wall segments showed normal motion. Findings: Study Quality * Technically adequate exam. Right Ventricle * Normal right ventricular structure and function. Right Atrium * Normal right atrial size. Mitral Valve * Normal mitral valve structure and function. Interatrial Septum * No evidence of PFO by color Doppler. Aorta * Normally sized aortic root. Pericardium * The pericardium appears normal. ECG Findings * Sinus bradycardia. Aortic Valve * No aortic regurgitation. * No aortic stenosis. * Mildly calcified aortic valve leaflets. Left Ventricle * Basal sigmoid septum. * LVEF 60-65%. * Mild left ventricular diastolic dysfunction. Tricuspid Valve * No tricuspid stenosis. * Mild tricuspid regurgitation. * Estimated RVSP is 28 mmHg. * No pulmonary hypertension. Pulmonic Valve * No pulmonic stenosis. * Mild-moderate pulmonic regurgitation. Left Atrium * Moderately dilated left atrium. - VTE Documentation of Mechanical Device: Graduated compression elastic hosiery Consult Discharge Plan - Plan Referrals: Ricco Childers MD [Primary Care Provider] -
[2018-02-23] MEDS ORDERED: Metoprolol XL (24 HR) Succ 50 MG TAB.ER.24H PO SCH (16:00)
[2018-02-23] MEDS: Sucralfate 1 GM TABLET PO SCH ×3 (16:57→21:02)
[2018-02-23] MEDS: amLODIPine 5 MG TABLET PO SCH (16:58)
[2018-02-23] MEDS: Piperacillin/Tazobactam 3.375 GM in 0.9 % Sodium Chloride Mini Bag 100 ML IVPB SCH ×2 (19:09→21:00)
[2018-02-23] MEDS: Metoprolol XL (24 HR) Succ 50 MG TAB.ER.24H PO SCH (21:00)
[2018-02-24] MEDS: Piperacillin/Tazobactam 3.375 GM in 0.9 % Sodium Chloride Mini Bag 100 ML IVPB SCH ×2 (04:28→12:41)
[2018-02-24 05:51] LABS: Basophils % 0.7 %; Eosinophils # 0.3 K/mcL (0.0-0.6); Eosinophils % 5.2 %; Hematocrit 36.2 % (35.3-44.9); Hemoglobin 12.3 g/dL (11.5-15.4); Mean Corpuscular Hemoglobin 31.4 pg (28.0-33.3); Mean Corpuscular Volume 92.3 fL (83.0-100.0); Mean Platelet Volume 10.3 fL (9.4-12.4); Monocytes # 0.5 K/mcL (0.0-1.3); Monocytes % 8.1 %; Neutrophils # 2.1 K/mcL (1.6-8.9); Platelet Count 178 K/mcL (140-400); Red Blood Count 3.92 M/mcL (3.82-4.97); Red Cell Distribution Width 12.5 % (11.5-14.5)
[2018-02-24] MEDS ORDERED: Regadenoson 0.4 MG/5 ML SYRINGE IVP ONE (05:54)
[2018-02-24 06:23] LABS: Calcium 8.9 mg/dL (8.6-10.3); Potassium 3.4 mEq/L (3.5-5.1)
[2018-02-24] MEDS ORDERED: Aminoglycoside Consult 1 EACH MC ONE (08:41)
[2018-02-24] MEDS: Cholecalciferol (D-3) 1,000 UNIT TABLET PO SCH (10:14)
[2018-02-24] MEDS: Aspirin Enteric Coated 81 MG Tablet PO SCH (10:15)
[2018-02-24] MEDS: diazePAM 5 MG TABLET PO SCH ×4 (10:17→21:30)
[2018-02-24] MEDS: cloNIDine HCl 0.1 MG TABLET PO SCH ×2 (10:17→16:24)
--- NOTE | 2018-02-24 11:09 | Cardiology Progress Note ---
Date of Encounter: 02/24/18 Time of Encounter: 11:00 Assessment and Plan (1) A-fib Current Visit: Yes Status: Acute New A.fib with RVR yesterday evening. She stated she felt the palpitations and chest pain that was squeezing like across her chest. It lasted 5min. She then had an EKG that demonstrated A.fib RVR. She was given lopressor 200mg. Upon looking at medications given and per event note the patient did not have her loppressor earlier in the day due to her apparently refusing. Also 2 days ago she only had half the dose of her metoprolol. May be rebound tachycardia due to not taking Toprol 200mg. -02/22/2018 EKG: HR 109 A.fib RVR, ST depression V3/V4/ V5 -02/23/2018 EKG: HR 62 NSR, ST depression V3/V4/ V5 -troponin <0.03 x4 -03/2016 Nuclear stress: no ischemia -TTE 02/23/2018: LVEF 60-65%, no pulmonary hypertension, no significant valvular dysfunction -CHADSVASC 6 (female, age, HTN, TIA) -Anticoagulation was discussed with the patient since CHADSVASC score is 6 which puts her at higher risk for stroke. She was agreeable to start anticoagulation upon discharge. The risks such as bleeding and the benefits were discussed with her. Will get manley check on anticoagulation medications. She will be renal dosed. -awaiting pharm nuclear stress test results -agree with heparin -continue BB -getting a manley check on eliquis from patient's pharmacy Qualifiers: Atrial fibrillation type: paroxysmal Qualified Code(s): I48.0 - Paroxysmal atrial fibrillation (2) Cellulitis Current Visit: No Status: Acute Patient is being treated for cellulitis of left foot with vancomycin and zosyn -management per primary team Qualifiers: Site of cellulitis: extremity Site of cellulitis of extremity: lower extremity Laterality: left Qualified Code(s): L03.116 - Cellulitis of left lower limb (3) CKD (chronic kidney disease) Current Visit: Yes Status: Acute Patient reports CKD stage 3 that she follows with Dr. Iliana Farrell 1.32 (1.22) slightly worsened -management per primary team Qualifiers: Chronic kidney disease stage: stage 3 (moderate) Qualified Code(s): N18.3 - Chronic kidney disease, stage 3 (moderate) (4) Hypertension Current Visit: Yes Status: Acute History of HTN -continue norvasc, asa, losartan, toprol Qualifiers: Hypertension type: essential hypertension Qualified Code(s): I10 - Essential (primary) hypertension Discussion w patient/family: The assessment and plan as outlined above was discussed with the patient and/or family members who expressed understanding and agreement. All questions were answered. Thank you for involving us in the care of your patient. Please call with any questions. Subjective Principal diagnosis: cellulitis of left foot Interval history: Patient currently denies chest pain, palpitations. Awaiting stress test results. Objective Vital Signs, Last 4 Hours Temp Pulse Resp BP Pulse Ox 02/24/18 07:10 97.9 F 67 14 136/73 95 General: Conversant, No Apparent Distress HEENT: Atraumatic, Mucus Membranes Moist Neck: No JVD Cardiac: Reg Rate and Rhythm, Normal S1 and S2 Lungs: Normal Breath Sounds, No Wheeze, Rales, Rhonchi Neuro: Alert and responsive Abdomen: Soft, Non-Tender Skin: No rashes noted on visualized skin Musculoskeletal: No Chest Wall Tenderness Extremities: No Edema Results 02/24/18 04:51 02/24/18 04:51 Lab Results 02/23/18 02/24/18 02/24/18 17:35 00:08 04:51 WBC 5.9 Hgb 12.3 Hct 36.2 Plt Count 178 APTT 66.3 H 58.5 H Sodium Potassium Chloride Carbon Dioxide BUN Creatinine Glucose Calcium 02/24/18 04:51 WBC Hgb Hct Plt Count APTT Sodium 138 Potassium 3.4 L Chloride 103 Carbon Dioxide 24 BUN 6 L Creatinine 1.32 H Glucose 100 Calcium 8.9 - VTE Documentation of Mechanical Device: Graduated compression elastic hosiery Consult Discharge Plan - Plan Referrals: Ricoc Childers MD [Primary Care Provider] -
[2018-02-24] MEDS: Heparin 25,000 UNIT/500 ML D5W 25,000 UNIT/500 ML BAG IVC SCH ×2 (12:41→21:30)
--- NOTE | 2018-02-24 14:29 | Internal Med Progress Note ---
Date of Encounter: 02/24/18 Time of Encounter: 16:16 - Assessment and plan (1) Cellulitis of left foot Current Visit: Yes Status: Acute Assessment and plan: VEry much improved, no OM Discontinue Vancomycin and Zosyn, patient has received 4 days IV and has made improvement chanage antibiotic regimen to augmentin po -renally adjusted (2) Hypertension Current Visit: Yes Status: Chronic Assessment and plan: controlled, continue current management Qualifiers: Hypertension type: essential hypertension Qualified Code(s): I10 - Essential (primary) hypertension (3) DVT prophylaxis Current Visit: Yes Status: Acute Assessment and plan: Heparin SQ (4) CKD (chronic kidney disease) Current Visit: Yes Status: Chronic Assessment and plan: renal function is at baseline, avoid nephrotoxins, continue to monitor Qualifiers: Chronic kidney disease stage: stage 3 (moderate) Qualified Code(s): N18.3 - Chronic kidney disease, stage 3 (moderate) (5) Metabolic acidosis Current Visit: Yes Status: Chronic Assessment and plan: chronic, due to renal disease (6) Chronic kidney disease-mineral and bone disorder Current Visit: Yes Status: Chronic Assessment and plan: chronic, stable, continue home meds (7) New onset atrial fibrillation Current Visit: Yes Status: Acute Assessment and plan: New onset HR controlled on current meds Stress test today negative TTE 02/23/2018: LVEF 60-65%, no pulmonary hypertension, no significant valvular dysfunction CHADSVASC 6 (female, age, HTN, TIA) On heparin drip Per cardiology, patient can be started on eliquis, patient had reported she will rather discuss this with 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 and 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 Continue current management - Time Spent With Patient Total time spent is greater than 50% in coordination of care (as documented) at patient's floor/unit and/or counseling patient: - Subjective Interval history: Seen and evaluated at bedside She states she feels very good She has no new complains Left foot cellulitis has mostly resolved and patient denies pain or tenderness - Constitutional Vitals: Temp Pulse Resp BP Pulse Ox 98 F 74 16 160/65 97 02/24/18 10:38 02/24/18 10:38 02/24/18 10:38 02/24/18 10:38 02/24/18 10:38 General appearance: Present: A&O X 3, pleasant, no acute distress - Head Head exam: Present: atraumatic, normocephalic - Eye Eye exam: Present: PERRL, conjuntiva pink, sclera anicteric Pupils: Present: PERRL - Neck Neck exam general surgery: Present: supple, trachea midline. Absent: lymphadenopathy - Respiratory Respiratory exam: Present: CTAB. Absent: accessory muscle use, rales, rhonchi, wheezes - Cardiovascular Cardiovascular exam: Present: irregular rhythm, +S1, +S2. Absent: systolic murmur - GI/Abdominal GI/Abdominal exam: Present: normal bowel sounds, soft, no peritoneal signs. Absent: distended, tenderness - Extremities Exam Extremities exam: Present: warm, radial pulses palpable and symmetrical. Absent : calf tenderness, cyanotic, pedal edema Additional comments: left foot dorasl surface with very minimal erythema, no swelling, no tenderness - Neurological Exam Neurological exam: Present: alert, CN II-XII intact, oriented X3, no focal deficits. Absent: pronater drift, facial droop, speech deficit - Skin Skin exam: Present: dry, intact Internal Medicine: Result - Labs CBC & Chem 7: 02/24/18 04:51 02/24/18 04:51 Labs: Short CBC 02/24/18 Range/Units 04:51 WBC 5.9 (4.3-11.1) K/mcL Hgb 12.3 (11.5-15.4) g/dL Hct 36.2 (35.3-44.9) % Plt Count 178 (140-400) K/mcL Neutrophils # 2.1 (1.6-8.9) K/mcL BMP 02/24/18 04:51 Sodium 138 Potassium 3.4 L Chloride 103 Carbon Dioxide 24 BUN 6 L Creatinine 1.32 H Glucose 100 Calcium 8.9 - ABG Interpretation ABG results: PT/INR, D-dimer PT 10.6 Seconds (9.4-12.1) 02/22/18 23:11 - VTE Documentation of Mechanical Device: Graduated compression elastic hosiery Consult Discharge Plan - Plan Instructions: Apixaban (By mouth) Referrals: Ricco Childers MD [Primary Care Provider] -
--- NOTE | 2018-02-24 15:20 | Event Note ---
Date of Encounter: 02/24/18 Time of Encounter: 15:15 - Cardiology Event Note Discussed with Dr. Jones, stress test negative for ischemia. No further cardiac testing recommended. Start eliquis for AC. Out-pt f/u will be scheduled. Call with questions. Cardiology will sign off.
[2018-02-24] MEDS: Sucralfate 1 GM TABLET PO SCH ×3 (16:23→21:30)
[2018-02-24] MEDS: Amoxicillin/Clavulanate 500 MG TABLET PO SCH (16:23)
[2018-02-24] MEDS: amLODIPine 5 MG TABLET PO SCH (16:24)
[2018-02-24] MEDS ORDERED: Apixaban 5 MG TABLET PO SCH (18:00)
[2018-02-24] MEDS: Metoprolol XL (24 HR) Succ 50 MG TAB.ER.24H PO SCH (19:17)
[2018-02-25 01:25] LABS: Basophils % 0.7 %; Eosinophils # 0.3 K/mcL (0.0-0.6); Eosinophils % 5.6 %; Hematocrit 33.5 % (35.3-44.9); Hemoglobin 11.3 g/dL (11.5-15.4); Immature Granulocytes % 0.2 % (0-4); Lymphocytes # 2.8 K/mcL (0.6-4.6); Lymphocytes % 50.4 %; Mean Corpuscular HGB Conc 33.7 g/dL (31.6-35.5); Mean Corpuscular Volume 91.8 fL (83.0-100.0); Mean Platelet Volume 10.1 fL (9.4-12.4); Monocytes # 0.5 K/mcL (0.0-1.3); Monocytes % 8.8 %; Neutrophils # 1.9 K/mcL (1.6-8.9); Platelet Count 167 K/mcL (140-400); Red Blood Count 3.65 M/mcL (3.82-4.97); Red Cell Distribution Width 12.3 % (11.5-14.5); Segmented Neutrophils % 34.3 %
[2018-02-25 01:48] LABS: Calcium 8.9 mg/dL (8.6-10.3); Potassium 3.3 mEq/L (3.5-5.1)
[2018-02-25] MEDS: Heparin 25,000 UNIT/500 ML D5W 25,000 UNIT/500 ML BAG IVC SCH (03:16)
[2018-02-25] MEDS: Cholecalciferol (D-3) 1,000 UNIT TABLET PO SCH (09:09)
[2018-02-25] MEDS: cloNIDine HCl 0.1 MG TABLET PO SCH (09:09)
[2018-02-25] MEDS: Aspirin Enteric Coated 81 MG Tablet PO SCH (09:10)
[2018-02-25] MEDS: Amoxicillin/Clavulanate 500 MG TABLET PO SCH (09:10)
[2018-02-25] MEDS: diazePAM 5 MG TABLET PO SCH ×2 (09:10→11:27)
[2018-02-25 10:44] VITALS: BP 113/59
--- NOTE | 2018-02-25 11:04 | Discharge Summary ---
- NOTES TO OUTPATIENT PROVIDER Notes to Outpatient Provider: This patient was admitted for cellulitis of the left foot without osteomyelitis on imaging, she developed atrial fibrillation with rapid ventricular response in the hospital. She underwent stress test that was negative, and she was started on heparin drip for anticoagulation. Her chronic diseases are stable. The patient refuses to be started on oral anticoagulation inpatient, defers this decision to her primary care physician and duct layer. She is educated about her risk of stroke and thrombosis. She verbalizes understanding. She has few ric days of renally adjusted Augmentin to take at home, her cultures were negative. Orders not resulted at time of discharge: Pending orders 02/23/18 11:07 NM mariann perf SPECT multi [NM] Routine 02/26/18 03:15 PTT [Activated Partial Thrombo Time] [COAG] Timed Date of Encounter: 02/25/18 Time of Encounter: 11:01 - Discharge Diagnosis (1) Cellulitis of left foot Priority: Primary Status: Acute (2) Hypertension Priority: Secondary Status: Chronic Qualifiers: Hypertension type: essential hypertension Qualified Code(s): I10 - Essential (primary) hypertension (3) DVT prophylaxis Priority: Primary Status: Resolved (4) CKD (chronic kidney disease) Priority: Secondary Status: Chronic Qualifiers: Chronic kidney disease stage: stage 3 (moderate) Qualified Code(s): N18.3 - Chronic kidney disease, stage 3 (moderate) (5) Metabolic acidosis Priority: Secondary Status: Chronic (6) Chronic kidney disease-mineral and bone disorder Priority: Secondary Status: Chronic (7) New onset atrial fibrillation Priority: Primary Status: Acute Hospital course: Ms. Lopez is a 77 year old female with CKD III, HTN, Anxiety, HLD She was admitted for Left foot cellulitis, without evidence of OM, without sepsis She is seen and evaluated this morning, she has no new complains Her cellultiis is very much improved, she received Vancomycin and Zosyn in- patient and will be discharged on Augmentin. She developed Afib with RVR in-patient, troponin <0.03 x4, ECHO and stress test unremarkable. CHADSVASC 6 (female, age, HTN, TIA), Cardiology was consulted and recommendations for anticoagulation was made, patient however, refused and states she will follow up with her PCP. She is on ASA, which we have continued, she received heparin infusion after the diagnosis of Afib and discontinued at discharge Her other chronic medical conditions are stable Discharge discussed with: patient, nurse, social work, case management - Time Spent with Patient Total time spent providing and/or coordinating discharge services: Greater than 30 minutes - Discharge Medications Prescriptions: Amoxicillin/Clavulanate [Augmentin] 500 mg PO BIDWM #10 tablet Home Medications: Amlodipine Besylate 10 mg PO DAILY 02/21/18 [History] Aspirin [Adult Aspirin Regimen] 81 mg PO DAILY 02/21/18 [History] Cholecalciferol (D-3) [Vitamin D] 5,000 unit PO DAILY 02/21/18 [History] Colesevelam HCl [Welchol] 1 pack PO DAILY 02/21/18 [History] Meclizine HCl [Verticalm] 25 mg PO TID PRN 02/21/18 [History] Saliva Stimulant [Biotene Moisturizing Rinse] 1 each PO TID PRN 02/21/18 [ History] Sucralfate [Carafate] 1 gm PO 0730,1630 02/21/18 [History] Sucralfate [Carafate] 2 gm PO HS 02/21/18 [History] Calcium Carbonate [Calcium] 500 mg PO BID 02/22/18 [History] Cholestyramine 8 gm PO BID 02/22/18 [History] Colesevelam HCl [Welchol] 3.75 gm PO DAILY 02/22/18 [History] Doxycycline Hyclate 02/22/18 [History] Losartan Potassium [Cozaar] 100 mg PO DAILY 02/22/18 [History] Metoprolol Succinate 200 mg PO DAILY 02/22/18 [History] Omeprazole [PriLOSEC] 40 mg PO DAILY 02/22/18 [History] cloNIDine HCl [CloNIDine HCl] 0.1 mg PO 02/22/18 [History] diazePAM [Valium] 5 mg PO Q6H PRN 02/22/18 [History] Amoxicillin/Clavulanate [Augmentin] 500 mg PO BIDWM #10 tablet 02/25/18 [Rx] Allergies/Adverse Reactions: 3 Allergy/AdvReac Type Severity Reaction Status Date / Time prednisone AdvReac Hypertensio Verified 04/18/16 08:46 n Gitfhhr-[id number]-Zdp Reductase AdvReac Cramping Verified 04/18/16 08:46 Inhibitor of the [Statins] Muscles Date of admission: 02/20/18 22:16 Primary care physician: Ricco Childers MD Consults: 02/20/18 22:28 Consult to Pastoral Services [CONS] Routine Comment: 02/22/18 23:00 Consult to Cardiology [CONS] Routine Comment: Consulting Provider: Cardiology Ila Reason for Consult: Patient began experiencing new onset of atrial fibrillation this evening. No previous hx. EKG shows atrial fibrillation with rapid ventricular response, ST deviation, and moderate T-wave abnormality, consider lateral ischemia. ST deviation and moderate T-wave abnormality, consider inferior ischemia. Denies CP. Stat trop and timed trops ordered. Echocardiogram ordered. Repeat EKG. Will begin low- dose heparin drip. Call Completed: No Discharging clinician: Migel Barrera Anticipated date of discharge: 02/25/18 - Constitutional Vitals: Temp Pulse Resp BP Pulse Ox 97.1 F L 71 15 113/59 95 02/25/18 10:43 02/25/18 10:43 02/25/18 10:43 02/25/18 10:43 02/25/18 10:43 General appearance: Present: A&O X 3, pleasant, no acute distress - Head Head exam: Present: atraumatic, normocephalic - Eye Eye exam: Present: PERRL, conjuntiva pink, sclera anicteric Pupils: Present: PERRL - Neck Neck exam general surgery: Present: supple, trachea midline. Absent: lymphadenopathy - Respiratory Respiratory exam: Present: CTAB. Absent: accessory muscle use, rales, rhonchi, wheezes - Cardiovascular Cardiovascular exam: Present: RRR, +S1, +S2. Absent: diastolic murmur, gallop, rubs, systolic murmur - GI/Abdominal GI/Abdominal exam: Present: normal bowel sounds, soft, no peritoneal signs. Absent: distended, tenderness - Extremities Exam Extremities exam: Present: warm, radial pulses palpable and symmetrical. Absent : calf tenderness, cyanotic, pedal edema Additional comments: left foot with mild erythma, no differential warmth, no swelling, no tenderness. - Neurological Exam Neurological exam: Present: alert, CN II-XII intact, oriented X3, no focal deficits. Absent: pronater drift, facial droop, speech deficit - Skin Skin exam: Present: dry, intact - Patient Status Disposition: Home, Self-Care Condition: Good Functional capacity at discharge: independent ambulation Overall status at discharge: patient is back to baseline - Discharge Instructions Instructions: Apixaban (By mouth) Follow Up With: Ricco Childers MD [Primary Care Provider] - - Diet and Activity Activity: resume usual activities as tolerated Diet: low fat, low cholesterol, low salt diet - VTE Documentation of Mechanical Device: Graduated compression elastic hosiery
== END 2018-02-25 12:30 | disposition home or self-care (01) | DRG 603 ==
LOC: EMEROO 19:37 → 3ANU 19:37 → SUATTDRO 22:16
PROVIDERS: ADMIT Internal Medicine Nephrology; ATTEND Internal Medicine

== ENCOUNTER 2018-07-30 11:13 | Observation (INO) ==
--- NOTE | 2018-07-30 12:21 | Emergency Department Note ---
Disposition Clinical Impression: Dizziness, Generalized weakness, Dehydration CKD (chronic kidney disease) Qualifiers: Chronic kidney disease stage: stage 3 (moderate) Qualified Code(s): N18.3 - Chronic kidney disease, stage 3 (moderate) Disposition: Admitted As Inpatient Condition: Good Referrals: Ricco Childers MD [Primary Care Provider] - Forms: ED Satisfaction Letter Time of Disposition: 14:31 General Adult HPI - General Chief complaint: ED Fall Stated complaint: "falling, dizzy,head feels funny" Time Seen by Provider: 07/30/18 11:56 Nursing Notes Reviewed: Yes Vital Signs Reviewed: Yes - History of Present Illness HPI Narrative: Pt with a history of HTN, Afib, CKD stage 3, carotid stenosis, TIA 15 years ago. She does not have a history of CO or stent placements or diabetes. complaining of a three-week history of increasing weakness. Multiple falls. She has been seen at this facility 2 other times within the past month for this as well. She did have an MRI of her her head as well as a CT of her head and chest x-ray that were normal on her last visit. She presented to her primary care physician today who was concerned for her increased weakness and send her to the emergency department for likely admission. Patient only complains of generalized weakness today. She states that she has not had any falls since her last visit here. But she does report that she is very weak when she ambulates. She did initially report dizziness but states that this is a feeling that she might get weak whenever she stands up. She denies the room spinning. Pain Scale: 4 - Related Data Home Medications Medication Instructions Recorded Confirmed Amlodipine Besylate 10 mg PO DAILY 02/21/18 02/22/18 Aspirin [Adult Aspirin Regimen] 81 mg PO DAILY 02/21/18 02/22/18 Meclizine HCl [Verticalm] 25 mg PO TID PRN 02/21/18 02/22/18 Sucralfate [Carafate] 1 gm PO 0730,1630 02/21/18 02/22/18 Sucralfate [Carafate] 2 gm PO HS 02/21/18 02/22/18 Calcium Carbonate [Calcium] 500 mg PO BID 02/22/18 02/22/18 Cholestyramine 8 gm PO BID 02/22/18 02/22/18 Colesevelam HCl [Welchol] 3.75 gm PO DAILY 02/22/18 02/22/18 Losartan Potassium [Cozaar] 100 mg PO DAILY 02/22/18 02/22/18 Metoprolol Succinate 200 mg PO DAILY 02/22/18 02/22/18 Omeprazole [PriLOSEC] 40 mg PO DAILY 02/22/18 02/22/18 cloNIDine HCl [CloNIDine HCl] 0.1 mg PO 02/22/18 02/22/18 diazePAM [Valium] 5 mg PO Q6H PRN 02/22/18 02/22/18 Apixaban [Eliquis] 5 mg PO BID 07/30/18 07/30/18 Ergocalciferol (VITAMIN D2) 50,000 unit PO QWEEK 07/30/18 07/30/18 [Vitamin D2] Sulfamethoxazole/Trimeth DS 1 each PO BID 07/30/18 07/30/18 [Bactrim DS] Previous Rx's Medication Instructions Recorded NALOXONE 4 MG Nasal [place] [Narcan] 4 mg NS AD #2 sprays 07/22/18 Promethazine [Phenergan] 12.5 mg PO Q8HR #12 tablet 07/24/18 Allergies Allergy/AdvReac Type Severity Reaction Status Date / Time prednisone AdvReac Hypertensio Verified 04/18/16 08:46 n [id number]-Zzk Reductase AdvReac Cramping Verified 04/18/16 08:46 Inhibitor of the [Statins] Muscles All systems ED: reviewed and negative except as stated. Review of Systems: As Per HPI Constitutional: Reports: weakness. Denies: fever, chills Cardiovascular: Reports: dyspnea on exertion. Denies: chest pain, palpitations , syncope Respiratory: Denies: cough, dyspnea, sputum production Gastrointestinal: Reports: constipation (small stools 2 times this week). Denies: abdominal pain, nausea, vomiting, diarrhea, hematemesis, melena, hematochezia Genitourinary: Denies: urgency, dysuria, frequency, hematuria Musculoskeletal: Reports: back pain (occasional to the back that shoots down the back of both legs. Not at this time. ) Neurological: Reports: weakness. Denies: numbness, vertigo Past Medical History - Past Medical History Attestation: Yes The following information was validated with the patient. Source: patient Medical history: Reports: hypertension, other Psychiatric history: Reports: no psych history - Social History Smoking Status: Never smoker Smokeless Tobacco Status: No Alcohol use: Reports: none Drug use: Reports: none Physical Exam - General Limitations: no limitations General appearance: alert, in no apparent distress - Head Head exam: atraumatic, normocephalic, normal inspection - Eye Eye exam: Present: normal appearance, PERRL, EOMI - ENT ENT exam: normal exam, normal oropharynx, mucous membranes dry - Neck Neck exam: Present: normal inspection, full ROM, trachea midline - Chest Chest inspection: Present: normal inspection, symmetric chest wall rise - Respiratory Respiratory exam: Present: normal lung sounds bilaterally. Absent: respiratory distress, accessory muscle use - Cardiovascular Cardiovascular exam: Present: regular rate, normal rhythm, normal heart sounds - Abdominal Exam Abdominal exam: Present: soft, Non-Tender. Absent: tenderness, distention, guarding, rebound, rigidity, organomegaly, Bailey's sign, Rovsing's sign, tenderness at McBurney's Point - Rectal Exam Channel Process Supervisor present during exam: Yes Rectal exam: Present: normal inspection, normal rectal tone, heme (-) stool, hemorrhoids (External), other (Very small amount of stool in rectal vault.). Absent: tenderness - Extremities Exam Extremities exam: Present: normal inspection, full ROM. Absent: tenderness, pedal edema - Back Exam Back exam: Present: normal inspection, full ROM. Absent: tenderness - Neurological Exam Neurological exam: Present: alert, oriented X3 - Psychiatric Psychiatric exam: Present: normal affect, normal mood - Skin Skin exam: Present: warm, dry, intact, normal color. Absent: rash, cyanosis Course Course Narrative: Patient presenting to the [facility] complaining of weakness. She appears well resting in bed. She appears in good spirits. Does not appear in respiratory distress. Denies any shortness of breath or chest pain. Family bedside reports patient's by mouth intake has significantly decreased. The patient also states that yesterday she was unable to drink a significant amount water secondary to just not wanting to. There is been concern about her diet. She states that she has not been eating any red meat or dairy products because she is afraid that her carotid stenosis is going get worse. Family reports an increase in weight loss secondary to a poor diet. Patient does not appear to be in any distress at this time. However her hemoglobin on her initial visit here was 14. A subsequent visit it came down to 10.9. It is 11 at this time. She denies any bleeding from her rectum. She denies any episodes of nausea or vomiting. She reports a decrease in her stooling recently but denies any dark stools. She is currently taking Elequis. She does have some old bruising on her right forearm. Lung sounds are clear heart tones are normal. Abdomen is soft nontender. Lab workup shows a hemoglobin 11. Her creatinine is actually improving. Today it is 1.72. We will admit patient to the hospital secondary to increasing weakness. And decreasing hemoglobin. Patient is agreeable with this. - Consultations Consultation #1: Dr Barrera accepted Pt in stable condition. Time: 14:48 Vital Signs Temperature 97.7 F 07/30/18 11:20 Pulse Rate 62 07/30/18 11:20 Respiratory Rate 14 07/30/18 11:20 Blood Pressure 94/64 07/30/18 11:20 O2 Sat by Pulse Oximetry 96 07/30/18 11:20 Temperature 97.7 F 07/30/18 12:34 Pulse Rate 60 07/30/18 13:58 Respiratory Rate 18 07/30/18 13:58 Blood Pressure 126/62 07/30/18 13:58 O2 Sat by Pulse Oximetry 100 07/30/18 13:58 Oxygen Delivery Oxygen Delivery Room Air Medical Decision Making - Medical Records Medical records reviewed: Yes I reviewed the patient's medical records. - Lab Data Lab results reviewed: Yes I reviewed the patient's lab results. Result diagrams: 07/30/18 12:23 07/30/18 12:23 Lab Results 07/30/18 07/30/18 07/30/18 Range/Units 12:23 12:23 13:46 WBC 5.8 (4.3-11.1) K/mcL RBC 3.60 L (3.82-4.97) M/mcL Hgb 11.0 L (11.5-15.4) g/dL Hct 33.8 L (35.3-44.9) % MCV 93.9 (83.0-100.0) fL MCH 30.6 (28.0-33.3) pg MCHC 32.5 (31.6-35.5) g/dL RDW 13.7 (11.5-14.5) % Plt Count 170 D (140-400) K/mcL MPV 11.2 (9.4-12.4) fL Immature Gran % 0.5 (0-4) % Seg Neutrophils % 61.3 % Lymphocytes % 23.4 % Monocytes % 8.5 % Eosinophils % 5.4 % Basophils % 0.9 % Neutrophils # 3.5 (1.6-8.9) K/mcL Lymphocytes # 1.4 (0.6-4.6) K/mcL Monocytes # 0.5 (0.0-1.3) K/mcL Eosinophils # 0.3 (0.0-0.6) K/mcL Basophils # 0.1 (0.0-0.2) K/mcL Sodium 134 L (136-145) mEq/L Potassium 4.5 (3.5-5.1) mEq/L Chloride 111 H (98-107) mEq/L Carbon Dioxide 19 L (23-29) mEq/L BUN 17 (8-23) mg/dL Creatinine 1.72 H (0.60-1.20) mg/dL Est GFR ( Amer) 35 L (> 60) Est GFR (Non-Af Amer) 29 L (> 60) BUN/Creatinine Ratio 10 (6-26) Glucose 99 (70-105) mg/dL Calculated Osmolality 280 (280-300) Calcium 11.1 H (8.6-10.3) mg/dL Total Bilirubin 0.4 (0.3-1.0) mg/dL AST 17 (13-39) Units/L ALT 21 (7-52) Units/L Alkaline Phosphatase 65 (34-104) Units/L Troponin I < 0.03 (< 0.04) ng/mL Serum Total Protein 6.2 L (6.4-8.9) g/dL Albumin 3.4 L (3.5-5.7) g/dL Globulin 2.8 (2.4-3.5) g/dL Albumin/Globulin Ratio 1.2 (1.1-2.2) Urine Color (Yellow) Urine Clarity (Clear) Urine pH (5.0-8.0) pH Units Ur Specific [place] (1.010-1.025) Urine Protein (Neg-Trace) mg/dL Urine Glucose (UA) (Normal) mg/dL Urine Ketones (Negative) mg/dL Urine Blood (Negative) Urine Nitrite (Negative) Urine Bilirubin (Negative) Urine Urobilinogen (Normal) mg/dL Ur Leukocyte Esterase (Negative) Urine Microscopic RBC (0-3) per hpf Urine Microscopic WBC (0-3) per hpf Ur Squamous Epith Cells (None-Few) per lpf Urine Bacteria (None-Few) per hpf Hyaline Casts (None-Few) per lpf Ur Culture Indicated? (NO) Stool Occult Bld Scrn Negative (Negative) 07/30/18 Range/Units 14:15 WBC (4.3-11.1) K/mcL RBC (3.82-4.97) M/mcL Hgb (11.5-15.4) g/dL Hct (35.3-44.9) % MCV (83.0-100.0) fL MCH (28.0-33.3) pg MCHC (31.6-35.5) g/dL RDW (11.5-14.5) % Plt Count (140-400) K/mcL MPV (9.4-12.4) fL Immature Gran % (0-4) % Seg Neutrophils % % Lymphocytes % % Monocytes % % Eosinophils % % Basophils % % Neutrophils # (1.6-8.9) K/mcL Lymphocytes # (0.6-4.6) K/mcL Monocytes # (0.0-1.3) K/mcL Eosinophils # (0.0-0.6) K/mcL Basophils # (0.0-0.2) K/mcL Sodium (136-145) mEq/L Potassium (3.5-5.1) mEq/L Chloride (98-107) mEq/L Carbon Dioxide (23-29) mEq/L BUN (8-23) mg/dL Creatinine (0.60-1.20) mg/dL Est GFR ( Amer) (> 60) Est GFR (Non-Af Amer) (> 60) BUN/Creatinine Ratio (6-26) Glucose (70-105) mg/dL Calculated Osmolality (280-300) Calcium (8.6-10.3) mg/dL Total Bilirubin (0.3-1.0) mg/dL AST (13-39) Units/L ALT (7-52) Units/L Alkaline Phosphatase (34-104) Units/L Troponin I (< 0.04) ng/mL Serum Total Protein (6.4-8.9) g/dL Albumin (3.5-5.7) g/dL Globulin (2.4-3.5) g/dL Albumin/Globulin Ratio (1.1-2.2) Urine Color Yellow (Yellow) Urine Clarity Clear (Clear) Urine pH 6.0 (5.0-8.0) pH Units Ur Specific [place] 1.014 (1.010-1.025) Urine Protein Negative (Neg-Trace) mg/dL Urine Glucose (UA) Normal (Normal) mg/dL Urine Ketones Negative (Negative) mg/dL Urine Blood Negative (Negative) Urine Nitrite Negative (Negative) Urine Bilirubin Negative (Negative) Urine Urobilinogen Normal (Normal) mg/dL Ur Leukocyte Esterase Moderate H (Negative) Urine Microscopic RBC 0-3 (0-3) per hpf Urine Microscopic WBC 5-15 H (0-3) per hpf Ur Squamous Epith Cells Many H (None-Few) per lpf Urine Bacteria None Seen (None-Few) per hpf Hyaline Casts Few (None-Few) per lpf Ur Culture Indicated? NO. A (NO) Stool Occult Bld Scrn (Negative) - Radiology Data Radiology results reviewed: Yes I reviewed the patient's radiology results. Chest X-Ray 07/30/18 13:52 IMPRESSION: Stable exam with no acute abnormality. D/ / Reynaldo Guzman MD / Reynaldo Guzman MD Interpreting Provider: Reynaldo Guzman MD - EKG Data EKG #1 EKG attestation: Yes I reviewed and interpreted this EKG. EKG results narrative: Normal sinus rhythm at a rate of 61. DE interval is 170. QRS duration is 97. QT is 408. QTC is 411. No signs of acute ischemia. Patient's sleep. Is now upward deflecting. Was previously biphasic. Other than that there are no other significant changes from previous EKG dated 07/24/2018.
[2018-07-30] MEDS ORDERED: 0.9 % Sodium Chloride 1,000 ML IVC ONE (12:23)
--- NOTE | 2018-07-30 12:33 | Emergency Department Note ---
Disposition General Adult HPI - General Chief complaint: ED Fall Stated complaint: "falling, dizzy,head feels funny" Time Seen by Provider: 07/30/18 11:56 Nursing Notes Reviewed: Yes Vital Signs Reviewed: Yes - History of Present Illness Pain Scale: 4 - Related Data Home Medications Medication Instructions Recorded Confirmed Amlodipine Besylate 10 mg PO DAILY 02/21/18 02/22/18 Aspirin [Adult Aspirin Regimen] 81 mg PO DAILY 02/21/18 02/22/18 Cholecalciferol (D-3) [Vitamin D] 5,000 unit PO DAILY 02/21/18 02/22/18 Colesevelam HCl [Welchol] 1 pack PO DAILY 02/21/18 02/22/18 Meclizine HCl [Verticalm] 25 mg PO TID PRN 02/21/18 02/22/18 Saliva Stimulant [Biotene 1 each PO TID PRN 02/21/18 02/22/18 Moisturizing Rinse] Sucralfate [Carafate] 1 gm PO 0730,1630 02/21/18 02/22/18 Sucralfate [Carafate] 2 gm PO HS 02/21/18 02/22/18 Calcium Carbonate [Calcium] 500 mg PO BID 02/22/18 02/22/18 Cholestyramine 8 gm PO BID 02/22/18 02/22/18 Colesevelam HCl [Welchol] 3.75 gm PO DAILY 02/22/18 02/22/18 Doxycycline Hyclate 02/22/18 Losartan Potassium [Cozaar] 100 mg PO DAILY 02/22/18 02/22/18 Metoprolol Succinate 200 mg PO DAILY 02/22/18 02/22/18 Omeprazole [PriLOSEC] 40 mg PO DAILY 02/22/18 02/22/18 cloNIDine HCl [CloNIDine HCl] 0.1 mg PO 02/22/18 02/22/18 diazePAM [Valium] 5 mg PO Q6H PRN 02/22/18 02/22/18 Previous Rx's Medication Instructions Recorded Amoxicillin/Clavulanate [Augmentin] 500 mg PO BIDWM #10 tablet 02/25/18 Potassium Chloride [Klor-Con 10] 40 meq PO DAILY #20 tablet.er 06/07/18 NALOXONE 4 MG Nasal [place] [Narcan] 4 mg NS AD #2 sprays 07/22/18 Promethazine [Phenergan] 12.5 mg PO Q8HR #12 tablet 07/24/18 Allergies Allergy/AdvReac Type Severity Reaction Status Date / Time prednisone AdvReac Hypertensio Verified 04/18/16 08:46 n Ooxwrmq-Yow-Xls Reductase AdvReac Cramping Verified 04/18/16 08:46 Inhibitor of the [Statins] Muscles Past Medical History - Past Medical History Medical history: Reports: hypertension, other Psychiatric history: Reports: no psych history - Social History Smoking Status: Never smoker Smokeless Tobacco Status: No Alcohol use: Reports: none Drug use: Reports: none Course Vital Signs Temperature 97.7 F 07/30/18 11:20 Pulse Rate 62 07/30/18 11:20 Respiratory Rate 14 07/30/18 11:20 Blood Pressure 94/64 07/30/18 11:20 O2 Sat by Pulse Oximetry 96 07/30/18 11:20 Temperature 97.7 F 07/30/18 11:20 Pulse Rate 62 07/30/18 11:20 Respiratory Rate 14 07/30/18 11:20 Blood Pressure 94/64 07/30/18 11:20 O2 Sat by Pulse Oximetry 96 07/30/18 11:20 Oxygen Delivery Oxygen Delivery Room Air
[2018-07-30 12:58] LABS: Troponin I < 0.03 ng/mL (< 0.04)
[2018-07-30 13:00] LABS: Alanine Aminotransferase 21 Units/L (7-52); Albumin 3.4 g/dL (3.5-5.7); Albumin/Globulin Ratio 1.2 (1.1-2.2); Alkaline Phosphatase 65 Units/L (34-104); Aspartate Amino Transferase 17 Units/L (13-39); BUN/Creatinine Ratio 10 (6-26); Bilirubin,Total 0.4 mg/dL (0.3-1.0); Blood Urea Nitrogen 17 mg/dL (8-23); Calcium 11.1 mg/dL (8.6-10.3); Carbon Dioxide 19 mEq/L (23-29); Chloride 111 mEq/L (98-107); Globulin 2.8 g/dL (2.4-3.5); Glucose 99 mg/dL (70-105); Osmolality,Calculated 280 (280-300); Potassium 4.5 mEq/L (3.5-5.1); Sodium 134 mEq/L (136-145); Total Protein 6.2 g/dL (6.4-8.9); eGFR For Non-African Americans 29 (> 60)
[2018-07-30 13:01] LABS: Basophils # 0.1 K/mcL (0.0-0.2); Basophils % 0.9 %; Eosinophils # 0.3 K/mcL (0.0-0.6); Eosinophils % 5.4 %; Hematocrit 33.8 % (35.3-44.9); Immature Granulocytes % 0.5 % (0-4); Lymphocytes # 1.4 K/mcL (0.6-4.6); Lymphocytes % 23.4 %; Mean Corpuscular HGB Conc 32.5 g/dL (31.6-35.5); Mean Corpuscular Hemoglobin 30.6 pg (28.0-33.3); Mean Corpuscular Volume 93.9 fL (83.0-100.0); Mean Platelet Volume 11.2 fL (9.4-12.4); Monocytes # 0.5 K/mcL (0.0-1.3); Monocytes % 8.5 %; Neutrophils # 3.5 K/mcL (1.6-8.9); Platelet Count 170 K/mcL (140-400); Red Cell Distribution Width 13.7 % (11.5-14.5); Segmented Neutrophils % 61.3 %
--- NOTE | 2018-07-30 13:27 | Emergency Department Note ---
Disposition Clinical Impression: Dizziness, Generalized weakness, CKD (chronic kidney disease) Disposition: Admitted As Inpatient Forms: ED Satisfaction Letter General Adult HPI - General Chief complaint: ED Fall Stated complaint: "falling, dizzy,head feels funny" Time Seen by Provider: 07/30/18 11:56 Source: patient, family Limitations: no limitations - History of Present Illness Pain Scale: 4 - Related Data Home Medications Medication Instructions Recorded Confirmed Amlodipine Besylate 10 mg PO DAILY 02/21/18 07/30/18 Aspirin [Adult Aspirin Regimen] 81 mg PO DAILY 02/21/18 07/30/18 Meclizine HCl [Verticalm] 25 mg PO TID PRN 02/21/18 07/30/18 Sucralfate [Carafate] 1 gm PO 0730,1630 02/21/18 07/30/18 Sucralfate [Carafate] 2 gm PO HS 02/21/18 07/30/18 Calcium Carbonate [Calcium] 500 mg PO BID 02/22/18 07/30/18 Cholestyramine 8 gm PO BID 02/22/18 07/30/18 Colesevelam HCl [Welchol] 3.75 gm PO DAILY 02/22/18 07/30/18 Losartan Potassium [Cozaar] 100 mg PO DAILY 02/22/18 07/30/18 Metoprolol Succinate 200 mg PO DAILY 02/22/18 07/30/18 Omeprazole [PriLOSEC] 40 mg PO DAILY 02/22/18 07/30/18 cloNIDine HCl [CloNIDine HCl] 0.1 mg PO QID 02/22/18 07/30/18 diazePAM [Valium] 5 mg PO Q6H PRN 02/22/18 07/30/18 Apixaban [Eliquis] 5 mg PO BID 07/30/18 07/30/18 Ergocalciferol (VITAMIN D2) 50,000 unit PO QWEEK 07/30/18 07/30/18 [Vitamin D2] Sulfamethoxazole/Trimeth DS 1 each PO BID 07/30/18 07/30/18 [Bactrim DS] Previous Rx's Medication Instructions Recorded NALOXONE 4 MG Nasal [place] [Narcan] 4 mg NS AD #2 sprays 07/22/18 Promethazine [Phenergan] 12.5 mg PO Q8HR #12 tablet 07/24/18 Allergies Allergy/AdvReac Type Severity Reaction Status Date / Time prednisone AdvReac Hypertensio Verified 04/18/16 08:46 n [id number]-Ziv Reductase AdvReac Cramping Verified 04/18/16 08:46 Inhibitor of the [Statins] Muscles Constitutional: Reports: weakness. Denies: fever, chills Cardiovascular: Reports: dyspnea on exertion. Denies: chest pain, palpitations , syncope Respiratory: Denies: cough, dyspnea, sputum production Gastrointestinal: Reports: constipation (small stools 2 times this week). Denies: abdominal pain, nausea, vomiting, diarrhea, hematemesis, melena, hematochezia Genitourinary: Denies: urgency, dysuria, frequency, hematuria Musculoskeletal: Reports: back pain (occasional to the back that shoots down the back of both legs. Not at this time. ) Neurological: Reports: weakness. Denies: numbness, vertigo Past Medical History - Past Medical History Medical history: Reports: atrial fibrillation, hyperlipidemia, hypertension, renal disease Psychiatric history: Reports: no psych history - Social History Smoking Status: Never smoker Smokeless Tobacco Status: No Alcohol use: Reports: none Drug use: Reports: none Physical Exam - General Limitations: no limitations General appearance: alert, in no apparent distress Course Vital Signs Temperature 97.7 F 07/30/18 11:20 Pulse Rate 62 07/30/18 11:20 Respiratory Rate 14 07/30/18 11:20 Blood Pressure 94/64 07/30/18 11:20 O2 Sat by Pulse Oximetry 96 07/30/18 11:20 Temperature 97.7 F 07/30/18 12:34 Pulse Rate 62 07/30/18 12:34 Respiratory Rate 14 07/30/18 12:34 Blood Pressure 94/64 07/30/18 12:34 O2 Sat by Pulse Oximetry 96 07/30/18 12:34 Oxygen Delivery Oxygen Delivery Room Air Medical Decision Making - Lab Data Result diagrams: 07/30/18 12:23 07/30/18 12:23 Lab Results 07/30/18 07/30/18 Range/Units 12:23 12:23 WBC 5.8 (4.3-11.1) K/mcL RBC 3.60 L (3.82-4.97) M/mcL Hgb 11.0 L (11.5-15.4) g/dL Hct 33.8 L (35.3-44.9) % MCV 93.9 (83.0-100.0) fL MCH 30.6 (28.0-33.3) pg MCHC 32.5 (31.6-35.5) g/dL RDW 13.7 (11.5-14.5) % Plt Count 170 D (140-400) K/mcL MPV 11.2 (9.4-12.4) fL Immature Gran % 0.5 (0-4) % Seg Neutrophils % 61.3 % Lymphocytes % 23.4 % Monocytes % 8.5 % Eosinophils % 5.4 % Basophils % 0.9 % Neutrophils # 3.5 (1.6-8.9) K/mcL Lymphocytes # 1.4 (0.6-4.6) K/mcL Monocytes # 0.5 (0.0-1.3) K/mcL Eosinophils # 0.3 (0.0-0.6) K/mcL Basophils # 0.1 (0.0-0.2) K/mcL Sodium 134 L (136-145) mEq/L Potassium 4.5 (3.5-5.1) mEq/L Chloride 111 H (98-107) mEq/L Carbon Dioxide 19 L (23-29) mEq/L BUN 17 (8-23) mg/dL Creatinine 1.72 H (0.60-1.20) mg/dL Est GFR ( Amer) 35 L (> 60) Est GFR (Non-Af Amer) 29 L (> 60) BUN/Creatinine Ratio 10 (6-26) Glucose 99 (70-105) mg/dL Calculated Osmolality 280 (280-300) Calcium 11.1 H (8.6-10.3) mg/dL Total Bilirubin 0.4 (0.3-1.0) mg/dL AST 17 (13-39) Units/L ALT 21 (7-52) Units/L Alkaline Phosphatase 65 (34-104) Units/L Troponin I < 0.03 (< 0.04) ng/mL Serum Total Protein 6.2 L (6.4-8.9) g/dL Albumin 3.4 L (3.5-5.7) g/dL Globulin 2.8 (2.4-3.5) g/dL Albumin/Globulin Ratio 1.2 (1.1-2.2) Attestation Statement - Attestation Attestation: I examined this patient and my medical decision-making was reviewed with the Resident Physician. I agree with the documented findings, disposition and treatment plan as described except to the extent set forth below. 78-year-old female presents emergency room for dizziness times many months. She also expressed complaining of increasing weakness. She denies any blood in her stool. No blackness color to her stool or any tarry colored stool. Denies any bright red blood per rectum. She denies any chest pain or shortness of breath. She does have a history of chronic renal insufficiency. She had a MRI of the brain within the last week that was unremarkable. Nature given her a hemoglobin and hematocrit are stable for her. She does have some renal insufficiency as mentioned. Her PCP wanted her to be admitted for further workup. Patient updated.
[2018-07-30 14:23] LABS: Bilirubin,Urine Negative (Negative); Blood,Urine Negative (Negative); Clarity,Urine Clear (Clear); Color,Urine Yellow (Yellow); Glucose,Urine (UA) Normal (Normal); Ketones,Urine Negative (Negative); Leukocyte Esterase,Urine Moderate (Negative); Nitrite,Urine Negative (Negative); Protein,Urine Negative (Neg-Trace); Specific Gravity,Urine 1.014 (1.010-1.025); Urobilinogen,Urine Normal (Normal)
[2018-07-30 14:25] LABS: Bacteria,Urine None Seen per hpf (None-Few); Hyaline Casts,Urine Few per lpf (None-Few); RBC,Urine 0-3 per hpf (0-3); Squamous Epithelial Cell,Urine Many per lpf (None-Few)
[2018-07-30] MEDS ORDERED: Naloxone 0.4 MG/ML INJ IVP PRN (15:42)
--- NOTE | 2018-07-30 17:36 | Internal Med History&Physical ---
<Sharyn Montenegro - Last Filed: 07/30/18 17:58> Date of Encounter: 07/30/18 Time of Encounter: 17:59 Internal Medicine - H&P: HPI History of present illness: Ms. Lopez is a 78 year old female Internal Medicine - H&P: Meds Amlodipine Besylate 10 mg PO DAILY 02/21/18 [History] Aspirin [Adult Aspirin Regimen] 81 mg PO DAILY 02/21/18 [History] Meclizine HCl [Verticalm] 25 mg PO TID PRN 02/21/18 [History] Sucralfate [Carafate] 1 gm PO 0730,1630 02/21/18 [History] Sucralfate [Carafate] 2 gm PO HS 02/21/18 [History] Calcium Carbonate [Calcium] 500 mg PO BID 02/22/18 [History] Cholestyramine 8 gm PO BID 02/22/18 [History] Colesevelam HCl [Welchol] 3.75 gm PO DAILY 02/22/18 [History] Losartan Potassium [Cozaar] 100 mg PO DAILY 02/22/18 [History] Metoprolol Succinate 200 mg PO DAILY 02/22/18 [History] Omeprazole [PriLOSEC] 40 mg PO DAILY 02/22/18 [History] cloNIDine HCl [CloNIDine HCl] 0.1 mg PO QID 02/22/18 [History] diazePAM [Valium] 5 mg PO Q6H PRN 02/22/18 [History] NALOXONE 4 MG Nasal [place] [Narcan] 4 mg NS AD #2 sprays 07/22/18 [Rx] Promethazine [Phenergan] 12.5 mg PO Q8HR #12 tablet 07/24/18 [Rx] Apixaban [Eliquis] 5 mg PO BID 07/30/18 [History] Ergocalciferol (VITAMIN D2) [Vitamin D2] 50,000 unit PO QWEEK 07/30/18 [History] Sulfamethoxazole/Trimeth DS [Bactrim DS] 1 each PO BID 07/30/18 [History] 3 Allergy/AdvReac Type Severity Reaction Status Date / Time prednisone AdvReac Hypertensio Verified 04/18/16 08:46 n [id number]-Pty Reductase AdvReac Cramping Verified 04/18/16 08:46 Inhibitor of the [Statins] Muscles All Systems PM: A 10-system review of systems was performed and is negative for pertinent findings except as documented above in the HPI. - Constitutional Vitals: Temp Pulse Resp BP Pulse Ox 97.7 F 60 20 115/60 100 07/30/18 12:34 07/30/18 13:58 07/30/18 15:39 07/30/18 15:39 07/30/18 13:58 Internal Med - H&P Results - Labs CBC & Chem 7: 07/30/18 12:23 07/30/18 12:23 - Time Spent With Patient Total time spent is greater than 50% in coordination of care (as documented) at patient's floor/unit and/or counseling patient: - Attending Attestation I saw evaluated and examined this patient and my medical decision-making was reviewed with the Resident Physician, Danni Thomason. I agree with the documented findings, disposition and treatment plan as described except to any changes set forth below. We independently had [id number] contact with the patient. 78-year-old female patient with history of atrial fibrillation on anticoagulation with Eliquis, hypertension, hyperlipidemia, chronic kidney disease stage III presented to the ER with complaints of generalized weakness, dizziness and lightheadedness. She reports symptoms have been going on for about 7-9 days now. She had fallen recently and was evaluated in the ER about a week back with a head CT and MRI of the brain which did not show any acute process. She continued to feel worse at home. She does report some tinnitus. Denies any nausea or vomiting. No chest pain. No shortness of breath. Patient says that she had fallen recently and had injuries on her left hand and right knee. She was concerned about infections and self medicated herself with Bactrim. On examination, patient is awake and alert and oriented 3. Oral mucosa is moist. Heart sounds are normal. Breath sounds are also normal. Abdomen is soft, nontender. Neuro examination is essentially normal. No focal deficits. No speech abnormality. Cranial nerves are normal. Labs show hemoglobin of 11, sodium 134, chloride 111, BUN 17, creatinine 1.72. Dizziness/generalized weakness: Etiology is uncertain. Could be from dehydration/Bactrim use. Will gently hydrate. Consult PTOT and professor of social work. Patient has had recent carotid Dopplers and echocardiogram. She also had recent falls. Given that she is on anticoagulants, there is high risk for subdural hematoma that can slowly present will obtain repeat CT scan of the head Tinnitus: Etiology uncertain but recent brain MRI did not show any acute process. Recommend outpatient follow-up with ENT. Chronic kidney disease stage III: Creatinine appears to be at baseline. Will monitor closely. Atrial fibrillation: Rate controlled. Continue Eliquis if head CT does not show any acute bleed. Essential hypertension: We will hold antihypertensives for now as patient's blood pressure appears to be on the lower side. Check orthostatic blood pressure. <Danni Thomason N - Last Filed: 07/30/18 18:49> Date of Encounter: 07/30/18 Time of Encounter: 17:36 Internal Medicine - H&P: HPI Chief complaint: Dizziness, near syncope Admitted From: Emergency Dept Plans for Post Hospital Care: Home History of present illness: Ms. Lopez is a 78 year old female with a history of chronic kidney disease, hypertension, hypercholesterolemia, atrial fibrillation, and cataracts. She presented to the ED stating her doctor "ordered her in". She reports that she began having problems after a fall that occurred 2-3 weeks ago, during which she injured her left arm and right knee. She states that she did not seek care at that time, but noted that the wounds became infected approximately 3 days later with yellow drainage. She came to the ED for evaluation at that time; however, she was not evaluated due to a "Code Yellow' incident that occurred shortly after her arrival. She states that she was in the emergency department for approximately 8 hours, after which she was decontaminated and sent home. She says that when she woke up the next morning, she could not walk or stand. At that point, she says that she called her doctor, who advised her to go back to the ED. Per ED documentation of that visit, patient reported dizziness and several falls the day before, and she underwent workup; however, head CT and MRI showed no acute process and she was discharged from the ED with promethazine. She states that when she got up this morning, she again could not get out of bed, stating that she was wobbly and dizzy and "staggered all over the place". She reports that if she were to look at a stationary object, it would start spinning; however, she denies any sensation of the room itself spinning. She denies any other changes in vision. She reports fever x1 day, with a high of 104F, which she treated at home with cool compresses. She also reports tinnitus and a sore mouth. Past Med Surg Social Fam HX - Past Medical History Medical history: atrial fibrillation, hyperlipidemia, hypertension, renal disease, other Additional medical history: MRSA hx Psychiatric history: no psych history - Past Surgical History Surgical History: hysterectomy Additional surgical history: Knee. bladder mesh - Social History Smoking Status: Never smoker Smokeless Tobacco Status: No Alcohol use: none Drug use: none Current living situation: Home - Independent, With Family Activity Level: Independent ambulation - Family History Father Living Status: Cause of : [place] Mother Living Status: Cause of : CVA Brother Living Status: Cause of : Heart disease - during heart surgery Sister Living Status: Cause of : Cancer - Additional Family History Additional family history: Diabetes mellitus, kidney disease All Systems PM: A 10-system review of systems was performed and is negative for pertinent findings except as documented above in the HPI. - Constitutional Vitals: Temp Pulse Resp BP Pulse Ox 97.7 F 60 20 115/60 100 07/30/18 12:34 07/30/18 13:58 07/30/18 15:39 07/30/18 15:39 07/30/18 13:58 Exam: * General: Pleasant elderly female resting in bed comfortably. She does not appear to be in acute distress and answers questions appropriately. * HEENT: Atraumatic and normocephalic. Oral mucosa moist. No sores or discoloration noted in oral cavity. * Neck: Soft and nontender. No thyromegaly or lymphadenopathy. * Cardiovascular: Irregular rate and rhythm. S1 and S2 present. No murmurs, rubs , or gallops. * Respiratory: Lungs CTA bilaterally. Chest rises and falls symmetrically with respiration. * Gastrointestinal: Active bowel sounds x 4 quadrants. Abdomen is soft, nondistended, and nontender. * Extremities: No clubbing, cyanosis, or edema. Bruising present on right forearm secondary to recent fall. * Neurologic: Alert and oriented x 3. Patient moves extremities spontaneously. No apparent focal deficits. Internal Med - H&P Results - Labs CBC & Chem 7: 07/30/18 12:23 07/30/18 12:23 - Assessment and plan (1) Near syncope Current Visit: Yes Status: Acute Assessment and plan: Patient has a history of vertigo; however, has had multiple near syncopal episodes recently. She had carotid doppler study performed in May of this year , which demonstrated 60-79% stenosis of the right internal carotid artery and 40 -59% stenosis in the right internal carotid artery. Echocardiogram performed in February of this year demonstrated LVEF 60-65% and moderate dilation of the left atrium, but no pulmonary hypertension or significant valve dysfunction. Plan to proceed with limited echocardiogram and head CT without contrast to rule out subdural hematoma, considering her recent fall and history of anticoagulation. Will also obtain orthostatic BP readings. May consider consulting vascular surgery if studies are negative. (2) Hypertension Current Visit: No Status: Chronic Assessment and plan: Home medications include amlodipine 10mg, clonidine 0.1mg QID, and metoprolol 200mg daily. Will hold those medications at the moment secondary multiple low BP measurements in the ED. Will reassess BP in the morning. Qualifiers: Hypertension type: essential hypertension Qualified Code(s): I10 - Essential (primary) hypertension (3) A-fib Current Visit: No Status: Acute Assessment and plan: Patient is currently on eliquis for anticoagulation. Currently holding anticoagulation due to recent fall pending results of head CT. Qualifiers: Atrial fibrillation type: paroxysmal Qualified Code(s): I48.0 - Paroxysmal atrial fibrillation (4) CKD (chronic kidney disease) Current Visit: Yes Status: Chronic Assessment and plan: Patient is currently receiving IV fluid hydration. Will avoid all nephrotoxic agents as possible and monitor renal function. Qualifiers: Chronic kidney disease stage: stage 3 (moderate) Qualified Code(s): N18.3 - Chronic kidney disease, stage 3 (moderate) (5) DVT prophylaxis Current Visit: No Status: Resolved Assessment and plan: Holding eliquis anticoagulation pending results of head CT. - Time Spent With Patient Total time spent is greater than 50% in coordination of care (as documented) at patient's floor/unit and/or counseling patient:
[2018-07-30] MEDS ORDERED: Ringers Solution, Lactated 1,000 ML IVC SCH (18:00)
[2018-07-30] MEDS ORDERED: NALOXONE 4 MG NS SCH (18:00)
[2018-07-30] MEDS ORDERED: Sucralfate 1 GM TABLET PO SCH (21:00)
[2018-07-30] MEDS: Cholecalciferol (D-3) 1,000 UNIT TABLET PO SCH (21:09)
[2018-07-30] MEDS: cloNIDine HCl 0.1 MG TABLET PO SCH (21:10)
[2018-07-30] MEDS: Cholestyramine 4 GM POWD.PACK PO SCH (21:10)
--- NOTE | 2018-07-30 21:59 | Event Note ---
Date of Encounter: 07/30/18 Time of Encounter: 21:10 Called by nurse for patient complaining of chest pain in center of chest in "V shape". No shortness of breath, nausea, or diaphoresis. Vitals stable. EKG sinus rhythm. Will order troponin. Rechecked patient 20 minutes later and she stated chest pain has completely resolved.
[2018-07-31 05:42] LABS: Basophils # 0.1 K/mcL (0.0-0.2); Basophils % 1.1 %; Eosinophils # 0.4 K/mcL (0.0-0.6); Eosinophils % 7.8 %; Hematocrit 30.7 % (35.3-44.9); Hemoglobin 10.2 g/dL (11.5-15.4); Immature Granulocytes % 0.2 % (0-4); Lymphocytes # 1.5 K/mcL (0.6-4.6); Lymphocytes % 32.3 %; Mean Corpuscular HGB Conc 33.2 g/dL (31.6-35.5); Mean Corpuscular Hemoglobin 30.6 pg (28.0-33.3); Mean Corpuscular Volume 92.2 fL (83.0-100.0); Mean Platelet Volume 10.7 fL (9.4-12.4); Monocytes # 0.5 K/mcL (0.0-1.3); Monocytes % 10.2 %; Neutrophils # 2.2 K/mcL (1.6-8.9); Platelet Count 168 K/mcL (140-400); Red Blood Count 3.33 M/mcL (3.82-4.97); Red Cell Distribution Width 13.7 % (11.5-14.5); Segmented Neutrophils % 48.4 %
[2018-07-31 05:56] LABS: Calcium 9.7 mg/dL (8.6-10.3); Potassium 4.3 mEq/L (3.5-5.1)
[2018-07-31] MEDS ORDERED: Sucralfate 1 GM TABLET PO SCH (07:30)
[2018-07-31] MEDS: Cholestyramine 4 GM POWD.PACK PO SCH (08:58)
[2018-07-31] MEDS: cloNIDine HCl 0.1 MG TABLET PO SCH ×2 (09:00→15:43)
[2018-07-31] MEDS ORDERED: Metoprolol XL (24 HR) Succ 50 MG TAB.ER.24H PO SCH (09:00)
[2018-07-31] MEDS ORDERED: amLODIPine 5 MG TABLET PO SCH (09:00)
[2018-07-31] MEDS: Cholecalciferol (D-3) 1,000 UNIT TABLET PO SCH (09:00)
[2018-07-31] MEDS ORDERED: Apixaban 5 MG TABLET PO SCH (14:30)
--- NOTE | 2018-07-31 14:57 | Internal Med Progress Note ---
<Danni Thomason N - Last Filed: 07/31/18 14:53> Hospitalist Progress Note - Encounter Date of Encounter: 07/31/18 Time of Encounter: 15:00 - Subjective Interval History: Ms. Lopez was admitted last night due to unsteadiness/dizziness. Near-syncope workup initiated. Head CT was unremarkable for acute process. Orthostatic BP measurements and echocardioram pending. Patient states that she feels better today, and denies any unsteadiness when up out of bed. She denies any chest discomfort at this time or shortness of breath. She did have some chest discomfort last night, likely secondary to reflux as troponins were negative. She denies any other complaints or concerns at this time. - Exam Vitals: Temp Pulse Resp BP Pulse Ox 98.2 F 78 15 150/72 97 07/31/18 07:10 07/31/18 11:40 07/31/18 11:40 07/31/18 11:40 07/31/18 11:40 Exam: * General: Pleasant elderly female resting in bed comfortably. She does not appear to be in acute distress and answers questions appropriately. * HEENT: Atraumatic and normocephalic. * Cardiovascular: Regular rate and rhythm. S1 and S2 present. No murmurs, rubs, or gallops. * Respiratory: Lungs CTA bilaterally. Chest rises and falls symmetrically with respiration. * Gastrointestinal: Active bowel sounds x 4 quadrants. Abdomen is soft, nondistended, and nontender. * Extremities: No clubbing, cyanosis, or edema. Bruising present on right forearm secondary to recent fall. - Assessment and Plan (1) Hypertension Current Visit: No Status: Chronic Assessment and Plan: Home medications include amlodipine 10mg, clonidine 0.1mg QID, and metoprolol 200mg daily. Continuing home medications. (2) A-fib Current Visit: No Status: Acute Assessment and Plan: Patient is currently on eliquis for anticoagulation. (3) CKD (chronic kidney disease) Current Visit: Yes Status: Chronic Assessment and Plan: Patient received 1L IV fluid hydration. Will avoid all nephrotoxic agents as possible and monitor renal function. (4) Near syncope Current Visit: Yes Status: Acute Assessment and Plan: Patient has a history of vertigo; however, has had multiple near syncopal episodes recently. She had carotid doppler study performed in [place] of this year , which demonstrated 60-79% stenosis of the right internal carotid artery and 40 -59% stenosis in the right internal carotid artery. Echocardiogram performed in February of this year demonstrated LVEF 60-65% and moderate dilation of the left atrium, but no pulmonary hypertension or significant valve dysfunction. Plan to proceed with limited echocardiogram and head CT without contrast to rule out subdural hematoma, considering her recent fall and history of anticoagulation. Will also obtain orthostatic BP readings. May consider consulting vascular surgery if studies are negative. 07/31 - Head CT was negative for any acute intracranial process. Patient reports feeling better today, though she says she is not quite at baseline yet. Echocardiogram results pending. Physical and occupational therapy consults pending. Expect that patient will likely be ready for discharge if results of echocardiogram and orthostatic BP measurements are normal. DVT Prophylaxis: Eliquis 5mg BID. - Time Spent with Patient Total time spent is greater than 50% in coordination of care (as documented) at patient's floor/unit and/or counseling patient: Internal Medicine: Result - Labs CBC & Chem 7: 07/31/18 05:20 07/31/18 05:20 Labs: Short CBC 07/31/18 Range/Units 05:20 WBC 4.5 (4.3-11.1) K/mcL Hgb 10.2 L (11.5-15.4) g/dL Hct 30.7 L (35.3-44.9) % Plt Count 168 (140-400) K/mcL Neutrophils # 2.2 (1.6-8.9) K/mcL BMP 07/31/18 05:20 Sodium 137 Potassium 4.3 Chloride 114 H Carbon Dioxide 17 L BUN 16 Creatinine 1.60 H Glucose 109 H Calcium 9.7 Cardiac Enzymes 07/30/18 Range/Units 22:12 Troponin I < 0.03 (< 0.04) ng/mL - Impressions Impressions Head CT 07/30/18 17:49 IMPRESSION: No acute intracranial abnormality. Mild cerebral atrophy appropriate for age. Mild chronic ischemic changes also age-appropriate. No significant change from the prior study. D/ / Nii Lawrence MD / Nii Lawrence MD Interpreting Provider: Nii Lawrence MD Consult Discharge Plan - Plan Referrals: Ricco Childers MD [Primary Care Provider] - (Requested a follow up appointment in 7-10 days. ) <Sharyn Montenegro - Last Filed: 07/31/18 15:14> Hospitalist Progress Note - Encounter Date of Encounter: 07/31/18 Time of Encounter: 09:00 - Exam Vitals: Temp Pulse Resp BP Pulse Ox 98.2 F 78 15 150/72 97 07/31/18 07:10 07/31/18 11:40 07/31/18 11:40 07/31/18 11:40 07/31/18 11:40 - Assessment and Plan (1) Hypertension Current Visit: No Status: Chronic (2) CKD (chronic kidney disease) Current Visit: Yes Status: Chronic (3) A-fib Current Visit: No Status: Acute (4) Near syncope Current Visit: Yes Status: Acute - Time Spent with Patient Total time spent is greater than 50% in coordination of care (as documented) at patient's floor/unit and/or counseling patient: Internal Medicine: Result - Labs CBC & Chem 7: 07/31/18 05:20 07/31/18 05:20 Labs: Short CBC 07/31/18 Range/Units 05:20 WBC 4.5 (4.3-11.1) K/mcL Hgb 10.2 L (11.5-15.4) g/dL Hct 30.7 L (35.3-44.9) % Plt Count 168 (140-400) K/mcL Neutrophils # 2.2 (1.6-8.9) K/mcL BMP 07/31/18 05:20 Sodium 137 Potassium 4.3 Chloride 114 H Carbon Dioxide 17 L BUN 16 Creatinine 1.60 H Glucose 109 H Calcium 9.7 Cardiac Enzymes 07/30/18 Range/Units 22:12 Troponin I < 0.03 (< 0.04) ng/mL - Impressions Impressions Head CT 07/30/18 17:49 IMPRESSION: No acute intracranial abnormality. Mild cerebral atrophy appropriate for age. Mild chronic ischemic changes also age-appropriate. No significant change from the prior study. D/ / Nii Lawrence MD / Nii Lawrence MD Interpreting Provider: Nii Lawrence MD - Attending Attestation I saw evaluated and examined this patient and my medical decision-making was reviewed with the Resident Physician, Danni Thomason. I agree with the documented findings, disposition and treatment plan as described except to any changes set forth below. We independently had [id number] contact with the patient. Patient is doing much better today. She reported some chest pain last night which was burning in nature and in a V-shaped region on her central chest. It resolves soon after without any medication. She does not have any chest pain at this time. No shortness of breath. No dizziness or lightheadedness. Overall she feels much better but not get at her baseline. On exam, patient is awake and alert and oriented 3. Heart sounds are normal. Breath sounds are normal. No focal deficits. Hemoglobin is 10.2, creatinine 1.6. Presyncope: Workup so far has been negative. CT of the head did not show any acute process. Limited echocardiogram pending. The QT consult pending. Tinnitus: Follow up outpatient with PCP and ENT. Chronic kidney disease stage III: Creatinine 1.6 today. Atrial fibrillation: Continue Eliquis for anticoagulation. Rate controlled. Essential hypertension: Blood pressure much better today. We will continue home medications. <Danni Thomason N - Last Filed: 07/31/18 14:53> (1) Hypertension Qualifiers: Hypertension type: essential hypertension Qualified Code(s): I10 - Essential (primary) hypertension (2) A-fib Qualifiers: Atrial fibrillation type: paroxysmal Qualified Code(s): I48.0 - Paroxysmal atrial fibrillation (3) CKD (chronic kidney disease) Qualifiers: Chronic kidney disease stage: stage 3 (moderate) Qualified Code(s): N18.3 - Chronic kidney disease, stage 3 (moderate) <Sharyn Montenegro - Last Filed: 07/31/18 15:14> (1) Hypertension Qualifiers: Hypertension type: essential hypertension Qualified Code(s): I10 - Essential (primary) hypertension (2) CKD (chronic kidney disease) Qualifiers: Chronic kidney disease stage: stage 3 (moderate) Qualified Code(s): N18.3 - Chronic kidney disease, stage 3 (moderate) (3) A-fib Qualifiers: Atrial fibrillation type: paroxysmal Qualified Code(s): I48.0 - Paroxysmal atrial fibrillation
--- NOTE | 2018-07-31 16:18 | Discharge Summary ---
<Danni Thomason N - Last Filed: 07/31/18 16:16> - NOTES TO OUTPATIENT PROVIDER Notes to Outpatient Provider: Patient presented with near syncope. Workup was negative for acute cardiac or intracranial process. Date of Encounter: 07/31/18 Time of Encounter: 16:16 - Discharge Diagnosis (1) Hypertension Priority: Secondary Status: Chronic Qualifiers: Hypertension type: essential hypertension Qualified Code(s): I10 - Essential (primary) hypertension (2) A-fib Priority: Secondary Status: Acute Qualifiers: Atrial fibrillation type: paroxysmal Qualified Code(s): I48.0 - Paroxysmal atrial fibrillation (3) CKD (chronic kidney disease) Priority: Secondary Status: Chronic Qualifiers: Chronic kidney disease stage: stage 3 (moderate) Qualified Code(s): N18.3 - Chronic kidney disease, stage 3 (moderate) (4) Near syncope Priority: Primary Status: Acute Hospital course: Ms. Lopez is 78-year old female who was admitted last night due to unsteadiness/dizziness. Near-syncope workup initiated. Head CT was unremarkable for acute process. Orthostatic BP measurements and echocardioram pending. Patient states that she feels better today, and denies any unsteadiness when up out of bed. She denies any chest discomfort at this time or shortness of breath. She did have some chest discomfort last night, likely secondary to reflux as troponins were negative. She denies any other complaints or concerns at this time. Workup was negative for acute cardiac or intracranial causes of her unsteadiness. Discharge discussed with: patient, nurse - Time Spent with Patient Total time spent providing and/or coordinating discharge services: - Discharge Medications Home Medications: Amlodipine Besylate 10 mg PO DAILY 02/21/18 [History] Aspirin [Adult Aspirin Regimen] 81 mg PO DAILY 02/21/18 [History] Meclizine HCl [Verticalm] 25 mg PO TID PRN 02/21/18 [History] Sucralfate [Carafate] 1 gm PO 0730,1630 02/21/18 [History] Sucralfate [Carafate] 2 gm PO HS 02/21/18 [History] Calcium Carbonate [Calcium] 500 mg PO BID 02/22/18 [History] Cholestyramine 8 gm PO BID 02/22/18 [History] Colesevelam HCl [Welchol] 3.75 gm PO DAILY 02/22/18 [History] Losartan Potassium [Cozaar] 100 mg PO DAILY 02/22/18 [History] Metoprolol Succinate 200 mg PO DAILY 02/22/18 [History] Omeprazole [PriLOSEC] 40 mg PO DAILY 02/22/18 [History] cloNIDine HCl [CloNIDine HCl] 0.1 mg PO QID 02/22/18 [History] diazePAM [Valium] 5 mg PO Q6H PRN 02/22/18 [History] NALOXONE 4 MG Nasal [place] [Narcan] 4 mg NS AD #2 sprays 07/22/18 [Rx] Promethazine [Phenergan] 12.5 mg PO Q8HR #12 tablet 07/24/18 [Rx] Apixaban [Eliquis] 5 mg PO BID 07/30/18 [History] Ergocalciferol (VITAMIN D2) [Vitamin D2] 50,000 unit PO QWEEK 07/30/18 [History] Allergies/Adverse Reactions: 3 Allergy/AdvReac Type Severity Reaction Status Date / Time prednisone AdvReac Hypertensio Verified 04/18/16 08:46 n [id number]-Dfe-Ndg Reductase AdvReac Cramping Verified 04/18/16 08:46 Inhibitor of the [Statins] Muscles Date of admission: 07/30/18 15:10 Primary care physician: Ricco Childers MD Consults: 07/30/18 17:49 Consult to Occupational Therapy [CONS] Routine Comment: Evaluate, develop and implement POC Reason for Consult: Difficulty ambulating Does patient have active BEDREST order?: No Is patient medically & hemodynamically stable?: Yes Consult to Physical Therapy [CONS] Routine Comment: Evaluate, develop and implement POC Reason for Consult: Difficulty ambulating Does patient have active BEDREST order?: No Is patient medically & hemodynamically stable?: Yes Consult to Technical Sales Support Specialist [CONS] Routine Reason for SW Consult: Discharge planning Discharging clinician: Danni Thomason Anticipated date of discharge: 07/31/18 - Constitutional Vitals: Temp Pulse Resp BP Pulse Ox 98.2 F 78 15 150/72 97 07/31/18 07:10 07/31/18 11:40 07/31/18 11:40 07/31/18 11:40 07/31/18 11:40 Exam: * General: Pleasant elderly female resting in bed comfortably. She does not appear to be in acute distress and answers questions appropriately. * HEENT: Atraumatic and normocephalic. * Cardiovascular: Regular rate and rhythm. S1 and S2 present. No murmurs, rubs, or gallops. * Respiratory: Lungs CTA bilaterally. Chest rises and falls symmetrically with respiration. * Gastrointestinal: Active bowel sounds x 4 quadrants. Abdomen is soft, nondistended, and nontender. * Extremities: No clubbing, cyanosis, or edema. Bruising present on right forearm secondary to recent fall. - Patient Status Disposition: Home, Self-Care Condition: Good Functional capacity at discharge: independent ambulation Overall status at discharge: patient is progressing back to baseline - Discharge Instructions Follow Up With: Ricco Childers MD [Primary Care Provider] - (Requested a follow up appointment in 7-10 days. ) Additional Instructions: Resume home medications. Follow up with your PCP in 3-5 days. Physical therapy will evaluate you at home. Until that time, be extra cautious when ambulating. Return to the ED if symptoms recur or if new concerns arise. - Diet and Activity Activity: resume usual activities as tolerated Diet: other (Renal diet.) <Monicheco - Last Filed: 07/31/18 17:24> Date of Encounter: 07/31/18 Time of Encounter: 17:22 - Discharge Diagnosis (1) Near syncope Priority: Primary Status: Acute (2) Hypertension Status: Chronic Qualifiers: Hypertension type: essential hypertension Qualified Code(s): I10 - Essential (primary) hypertension (3) CKD (chronic kidney disease) Status: Chronic Qualifiers: Chronic kidney disease stage: stage 3 (moderate) Qualified Code(s): N18.3 - Chronic kidney disease, stage 3 (moderate) (4) A-fib Status: Acute Qualifiers: Atrial fibrillation type: paroxysmal Qualified Code(s): I48.0 - Paroxysmal atrial fibrillation Hospital course: Ms. Lopez is a 78 year old female - Time Spent with Patient Total time spent providing and/or coordinating discharge services: Less than 30 minutes (25 min) Date of admission: 07/30/18 15:10 Primary care physician: Ricco Childers MD Consults: 09/06/18 17:49 Consult to Occupational Therapy [CONS] Routine Comment: Evaluate, develop and implement POC Reason for Consult: Difficulty ambulating Does patient have active BEDREST order?: No Is patient medically & hemodynamically stable?: Yes Consult to Physical Therapy [CONS] Routine Comment: Evaluate, develop and implement POC Reason for Consult: Difficulty ambulating Does patient have active BEDREST order?: No Is patient medically & hemodynamically stable?: Yes Consult to Technical Sales Support Specialist [CONS] Routine Reason for SW Consult: Discharge planning - Constitutional Vitals: Temp Pulse Resp BP Pulse Ox 98.5 F 79 16 126/66 95 07/31/18 16:26 07/31/18 16:26 07/31/18 16:26 07/31/18 16:26 07/31/18 16:26 - Attending Attestation I saw evaluated and examined this patient and my medical decision-making was reviewed with the Resident Physician, Danni Thomason. I agree with the documented findings, disposition and treatment plan as described except to any changes set forth below. We independently had [id number] contact with the patient. 78-year-old female patient with history of chronic kidney disease stage III, atrial fibrillation and hypertension was hospitalized here with near syncope. Patient had been having episodes of unsteadiness and generalized weakness and dizziness. She had a CT scan of the head which was negative. She also had recent carotid Dopplers and echocardiogram. She was treated with IV fluids. Her symptoms have now improved significantly. A limited 2-D echocardiogram was done which showed normal ejection fraction. At this time, patient is clinically stable to be discharged home. She will be provided physical therapy at home to help with her recovery and unsteadiness. On examination today, patient is awake and alert. Neuro examination is essentially normal. Heart sounds are normal.
[2018-07-31 16:27] VITALS: BP 126/66
--- NOTE | 2018-07-31 16:29 | Physician Discharge Referral ---
Home Health/Hosp Referral Info Transfer to: Home Health Provider in Charge Post Discharge: PCP - Diagnosis (1) Near syncope Priority: Primary Status: Acute (2) Hypertension Priority: Secondary Status: Chronic (3) A-fib Priority: Secondary Status: Acute (4) CKD (chronic kidney disease) Priority: Secondary Status: Chronic - Respiratory Orders Smoking Cessation: Smoking cessation has been advised. For more information, call the [place] Tobacco Quit Line at 5-468-BYAS-NOW. - Services Needed Following services are medically necessary services: Physical Therapy, Occupational Therapy - Transfer Medications Home Medications: Amlodipine Besylate 10 mg PO DAILY 02/21/18 [History] Aspirin [Adult Aspirin Regimen] 81 mg PO DAILY 02/21/18 [History] Meclizine HCl [Verticalm] 25 mg PO TID PRN 02/21/18 [History] Sucralfate [Carafate] 1 gm PO 0730,1630 02/21/18 [History] Sucralfate [Carafate] 2 gm PO HS 02/21/18 [History] Calcium Carbonate [Calcium] 500 mg PO BID 02/22/18 [History] Cholestyramine 8 gm PO BID 02/22/18 [History] Colesevelam HCl [Welchol] 3.75 gm PO DAILY 02/22/18 [History] Losartan Potassium [Cozaar] 100 mg PO DAILY 02/22/18 [History] Metoprolol Succinate 200 mg PO DAILY 02/22/18 [History] Omeprazole [PriLOSEC] 40 mg PO DAILY 02/22/18 [History] cloNIDine HCl [CloNIDine HCl] 0.1 mg PO QID 02/22/18 [History] diazePAM [Valium] 5 mg PO Q6H PRN 02/22/18 [History] NALOXONE 4 MG Nasal [place] [Narcan] 4 mg NS AD #2 sprays 07/22/18 [Rx] Promethazine [Phenergan] 12.5 mg PO Q8HR #12 tablet 07/24/18 [Rx] Apixaban [Eliquis] 5 mg PO BID 07/30/18 [History] Ergocalciferol (VITAMIN D2) [Vitamin D2] 50,000 unit PO QWEEK 07/30/18 [History] Allergies/Adverse Reactions: 3 Allergy/AdvReac Type Severity Reaction Status Date / Time prednisone AdvReac Hypertensio Verified 04/18/16 08:46 n Iradeir-Tup-Nom Reductase AdvReac Cramping Verified 04/18/16 08:46 Inhibitor of the [Statins] Muscles Certification: Further, I certify that my clinical findings support that this patient is homebound (i.e. absences from home require considerable and taxing effort and are for medical reasons or restoration services or infrequently or short duration when for other reasons) because: Homebound Reason: Patient requires assistance of a person or device to safely leave home Attestation: My signature below is to certify that this patient is under my care and that I, or nurse practitioner, or a physician's cosmetic sales assistant working with me, has a face-to -face encounter with this patient.
--- NOTE | 2018-08-01 15:32 | Electrocardiograph Report ---
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
--- NOTE | 2018-08-01 15:53 | Electrocardiograph Report ---
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
== END 2018-07-31 18:11 | disposition home or self-care (01) ==
LOC: 3BNU 11:13 → EMEROOARM 11:13 → SUATTDRO 15:10 → 3BNU 16:47
PROVIDERS: ADMIT Internal Medicine; ATTEND Internal Medicine

== ENCOUNTER 2019-05-27 16:25 | Observation (INO) ==
[2019-05-27 17:03] LABS: Basophils % 0.6 %; Eosinophils # 0.2 K/mcL (0.0-0.6); Eosinophils % 2.8 %; Hematocrit 37.3 % (35.3-44.9); Hemoglobin 12.6 g/dL (11.5-15.4); Immature Granulocytes % 0.3 % (0-4); Mean Corpuscular HGB Conc 33.8 g/dL (31.6-35.5); Mean Corpuscular Volume 91.6 fL (83.0-100.0); Mean Platelet Volume 10.9 fL (9.4-12.4); Monocytes # 0.6 K/mcL (0.0-1.3); Monocytes % 9.2 %; Neutrophils # 2.6 K/mcL (1.6-8.9); Platelet Count 185 K/mcL (140-400); Red Blood Count 4.07 M/mcL (3.82-4.97); Segmented Neutrophils % 40.1 %; White Blood Count 6.4 K/mcL (4.3-11.1)
[2019-05-27] MEDS ORDERED: 0.9 % Sodium Chloride 500 ML IVC STA (17:05)
[2019-05-27] MEDS ORDERED: Aspirin 325 MG TABLET PO ONE (17:05)
[2019-05-27 17:14] LABS: INR 1.1; Prothrombin Time 12.9 Seconds (9.4-12.1)
[2019-05-27 17:17] LABS: Activated Partial Thrombo Time 39.5 Seconds (26.0-36.0)
[2019-05-27 17:25] LABS: Alanine Aminotransferase 15 Units/L (7-52); Albumin 4.1 g/dL (3.5-5.7); Albumin/Globulin Ratio 1.5 (1.1-2.2); Alkaline Phosphatase 58 Units/L (34-104); Aspartate Amino Transferase 20 Units/L (13-39); BUN/Creatinine Ratio 7 (6-26); Bilirubin,Direct 0.1 mg/dL (0.0-0.2); Bilirubin,Indirect 0.2 mg/dL (0.0-1.2); Bilirubin,Total 0.3 mg/dL (0.3-1.0); Blood Urea Nitrogen 10 mg/dL (8-23); Calcium 9.4 mg/dL (8.6-10.3); Carbon Dioxide 24 mEq/L (23-29); Chloride 96 mEq/L (98-107); Globulin 2.8 g/dL (2.4-3.5); Glucose 128 mg/dL (70-105); Lipase 40 Units/L (11-82); Osmolality,Calculated 271 (280-300); Potassium 3.9 mEq/L (3.5-5.1); Sodium 130 mEq/L (136-145); Total Protein 6.9 g/dL (6.4-8.9); eGFR For African Americans 46 (> 60); eGFR For Non-African Americans 38 (> 60)
[2019-05-27 17:33] LABS: Troponin I < 0.03 ng/mL (< 0.04)
[2019-05-27] MEDS: Nitroglycerin 0.4 MG TAB.SUBL SL SCH ×4 (17:44→20:29)
[2019-05-27] MEDS ORDERED: Nitroglycerin 0.4 MG TAB.SUBL SL PRN (19:55)
[2019-05-27] MEDS ORDERED: Sucralfate 1 GM TABLET PO SCH (21:00)
[2019-05-27] MEDS: cloNIDine HCl 0.1 MG TABLET PO SCH (21:40)
[2019-05-27] MEDS: Cholestyramine 4 GM POWD.PACK PO SCH (21:40)
[2019-05-27] MEDS: Apixaban 5 MG TABLET PO SCH (21:40)
[2019-05-28 04:22] LABS: Basophils % 0.4 %; Eosinophils # 0.2 K/mcL (0.0-0.6); Eosinophils % 3.9 %; Hematocrit 35.5 % (35.3-44.9); Lymphocytes # 2.4 K/mcL (0.6-4.6); Lymphocytes % 45.9 %; Mean Corpuscular HGB Conc 33.8 g/dL (31.6-35.5); Mean Corpuscular Hemoglobin 31.6 pg (28.0-33.3); Mean Corpuscular Volume 93.4 fL (83.0-100.0); Mean Platelet Volume 10.9 fL (9.4-12.4); Monocytes # 0.5 K/mcL (0.0-1.3); Monocytes % 9.3 %; Neutrophils # 2.1 K/mcL (1.6-8.9); Platelet Count 158 K/mcL (140-400); Segmented Neutrophils % 40.5 %; White Blood Count 5.2 K/mcL (4.3-11.1)
[2019-05-28 04:46] LABS: Albumin 3.5 g/dL (3.5-5.7); Albumin/Globulin Ratio 1.5 (1.1-2.2); Bilirubin,Total 0.4 mg/dL (0.3-1.0); Globulin 2.4 g/dL (2.4-3.5); Potassium 3.9 mEq/L (3.5-5.1); Total Protein 5.9 g/dL (6.4-8.9)
[2019-05-28] MEDS ORDERED: Regadenoson 0.4 MG/5 ML SYRINGE IVP ONE (06:41)
[2019-05-28] MEDS ORDERED: amLODIPine 5 MG TABLET PO SCH (09:00)
[2019-05-28] MEDS ORDERED: Aspirin Enteric Coated 81 MG Tablet PO SCH (09:00)
[2019-05-28] MEDS ORDERED: Metoprolol XL (24 HR) Succ 50 MG TAB.ER.24H PO SCH (09:00)
[2019-05-28] MEDS: Cholestyramine 4 GM POWD.PACK PO SCH (10:12)
[2019-05-28] MEDS: cloNIDine HCl 0.1 MG TABLET PO SCH ×2 (10:14→13:02)
[2019-05-28] MEDS: Apixaban 5 MG TABLET PO SCH (10:14)
[2019-05-28] MEDS ORDERED: Ranolazine 500 MG TAB.ER.12H PO SCH (14:45)
[2019-05-28 16:42] VITALS: BP 127/69
[2019-05-30] MEDS ORDERED: Ergocalciferol (VIT D2) 50,000 UNIT (1.25MG) CAP PO SCH (09:00)
== END 2019-05-28 16:47 | disposition home or self-care (01) ==
LOC: EMEROOARM 16:25 → 3BNU 16:25
PROVIDERS: ADMIT Internal Medicine; ATTEND Internal Medicine

== ENCOUNTER 2020-01-15 11:01 | Inpatient (IN) ==
[2020-01-15 11:55] LABS: Basophils % 0.2 %; Eosinophils # 0.1 K/mcL (0.0-0.6); Eosinophils % 0.8 %; Hematocrit 37.7 % (35.3-44.9); Hemoglobin 13.1 g/dL (11.5-15.4); Immature Granulocytes % 0.4 % (0-4); Lymphocytes # 1.4 K/mcL (0.6-4.6); Lymphocytes % 10.4 %; Mean Corpuscular HGB Conc 34.7 g/dL (31.6-35.5); Mean Corpuscular Hemoglobin 31.6 pg (28.0-33.3); Mean Corpuscular Volume 90.8 fL (83.0-100.0); Mean Platelet Volume 10.2 fL (9.4-12.4); Monocytes # 1.3 K/mcL (0.0-1.3); Monocytes % 9.1 %; Neutrophils # 10.9 K/mcL (1.6-8.9); Platelet Count 185 K/mcL (140-400); Red Blood Count 4.15 M/mcL (3.82-4.97); Red Cell Distribution Width 12.1 % (11.5-14.5); Segmented Neutrophils % 79.1 %; White Blood Count 13.8 K/mcL (4.3-11.1)
[2020-01-15] MEDS ORDERED: MetroNIDAZOLE 500 MG/100 ML 500 MG/100 ML BAG IVPB SCH (12:00)
[2020-01-15 12:06] LABS: Bilirubin,Urine Negative (Negative); Blood,Urine Negative (Negative); Clarity,Urine Cloudy (Clear); Color,Urine Dark Yellow (Yellow); Glucose,Urine (UA) Normal (Normal); Ketones,Urine Negative (Negative); Leukocyte Esterase,Urine Small (Negative); Nitrite,Urine Negative (Negative); PH,Urine 5.5 pH Units (5.0-8.0); Protein,Urine 30 mg/dL (Neg-Trace); Specific Gravity,Urine 1.018 (1.010-1.025); Urobilinogen,Urine Normal (Normal)
[2020-01-15 12:07] LABS: Bacteria,Urine None Seen per hpf (None-Few); Hyaline Casts,Urine Few per lpf (None-Few); Squamous Epithelial Cell,Urine Many per lpf (None-Few)
[2020-01-15 12:12] LABS: Calcium 9.7 mg/dL (8.6-10.3); Potassium 3.7 mEq/L (3.5-5.1)
[2020-01-15] MEDS: 0.9 % Sodium Chloride 1,000 ML IVC SCH ×2 (12:33→19:00)
[2020-01-15] MEDS ORDERED: Naloxone 0.4 MG/ML INJ IVP PRN (16:13)
[2020-01-15] MEDS ORDERED: Ondansetron 4 MG/2 ML VIAL IVP PRN (16:13)
[2020-01-15] MEDS: diazePAM 5 MG TABLET PO SCH ×2 (16:44→20:33)
[2020-01-15] MEDS: Sucralfate 1 GM TABLET PO SCH ×2 (16:44→20:33)
[2020-01-15] MEDS: cloNIDine HCl 0.1 MG TABLET PO SCH ×2 (16:44→20:00)
[2020-01-15] MEDS: Acetaminophen 325 MG TABLET PO PRN (16:44)
[2020-01-15] MEDS: Ranolazine 500 MG TAB.ER.12H PO SCH (20:00)
[2020-01-15] MEDS: Apixaban 5 MG TABLET PO SCH (20:33)
[2020-01-15] MEDS: MetroNIDAZOLE 500 MG/100 ML 500 MG/100 ML BAG IVPB SCH (23:03)
[2020-01-16 01:42] LABS: Basophils % 0.2 %; Eosinophils # 0.1 K/mcL (0.0-0.6); Eosinophils % 0.4 %; Hematocrit 33.3 % (35.3-44.9); Hemoglobin 11.8 g/dL (11.5-15.4); Immature Granulocytes % 0.5 % (0-4); Lymphocytes # 1.6 K/mcL (0.6-4.6); Lymphocytes % 12.5 %; Mean Corpuscular HGB Conc 35.4 g/dL (31.6-35.5); Mean Corpuscular Hemoglobin 32.4 pg (28.0-33.3); Mean Corpuscular Volume 91.5 fL (83.0-100.0); Mean Platelet Volume 10.8 fL (9.4-12.4); Monocytes # 1.6 K/mcL (0.0-1.3); Monocytes % 12.5 %; Neutrophils # 9.5 K/mcL (1.6-8.9); Platelet Count 165 K/mcL (140-400); Red Blood Count 3.64 M/mcL (3.82-4.97); Red Cell Distribution Width 12.1 % (11.5-14.5); Segmented Neutrophils % 73.9 %; White Blood Count 12.8 K/mcL (4.3-11.1)
[2020-01-16 02:00] LABS: Albumin 3.2 g/dL (3.5-5.7); Albumin/Globulin Ratio 1.2 (1.1-2.2); Bilirubin,Total 0.8 mg/dL (0.3-1.0); Calcium 8.4 mg/dL (8.6-10.3); Globulin 2.6 g/dL (2.4-3.5); Magnesium 1.3 mg/dL (1.6-2.6); Phosphorous 1.7 mg/dL (2.7-4.5); Potassium 3.5 mEq/L (3.5-5.1); Total Protein 5.8 g/dL (6.4-8.9)
[2020-01-16] MEDS: 0.9 % Sodium Chloride 1,000 ML IVC SCH ×3 (04:00→23:10)
[2020-01-16] MEDS: Acetaminophen 325 MG TABLET PO PRN ×2 (04:45→10:56)
[2020-01-16] MEDS: MetroNIDAZOLE 500 MG/100 ML 500 MG/100 ML BAG IVPB SCH (07:35)
[2020-01-16] MEDS: Sucralfate 1 GM TABLET PO SCH ×3 (07:38→20:13)
[2020-01-16] MEDS: Apixaban 5 MG TABLET PO SCH ×2 (07:38→20:14)
[2020-01-16] MEDS: cloNIDine HCl 0.1 MG TABLET PO SCH ×4 (07:38→20:13)
[2020-01-16] MEDS: Aspirin Enteric Coated 81 MG Tablet PO SCH (07:38)
[2020-01-16] MEDS: Multivit/Ca/Min/Fe/FA 1 TAB TABLET PO SCH (07:39)
[2020-01-16] MEDS: Metoprolol XL (24 HR) Succ 50 MG TAB.ER.24H PO SCH (07:39)
[2020-01-16] MEDS: Ranolazine 500 MG TAB.ER.12H PO SCH ×2 (07:39→20:13)
[2020-01-16] MEDS: diazePAM 5 MG TABLET PO SCH ×4 (07:39→20:13)
[2020-01-16] MEDS ORDERED: Bisacodyl 10 MG RECTAL SUPPOSITORY RC PRN (09:47)
[2020-01-16] MEDS: Piperacillin/Tazobactam 3.375 GM in 0.9 % Sodium Chloride Mini Bag 100 ML IVPB SCH ×3 (15:04→23:11)
[2020-01-16] MEDS ORDERED: Piperacillin/Tazobactam 3.375 GM in 0.9 % Sodium Chloride Mini Bag 100 ML IVPB SCH (16:00)
[2020-01-16] MEDS ORDERED: Ergocalciferol (VIT D2) 50,000 UNIT (1.25MG) CAP PO SCH (16:10)
[2020-01-17] MEDS: Acetaminophen 325 MG TABLET PO PRN (04:03)
[2020-01-17 05:59] LABS: Basophils % 0.2 %; Eosinophils % 0.1 %; Hematocrit 29.9 % (35.3-44.9); Hemoglobin 10.3 g/dL (11.5-15.4); Immature Granulocytes % 2.9 % (0-4); Lymphocytes # 1.5 K/mcL (0.6-4.6); Lymphocytes % 10.2 %; Mean Corpuscular HGB Conc 34.4 g/dL (31.6-35.5); Mean Corpuscular Hemoglobin 32.1 pg (28.0-33.3); Mean Corpuscular Volume 93.1 fL (83.0-100.0); Mean Platelet Volume 10.5 fL (9.4-12.4); Monocytes # 1.8 K/mcL (0.0-1.3); Monocytes % 12.3 %; Neutrophils # 10.6 K/mcL (1.6-8.9); Platelet Count 148 K/mcL (140-400); Red Blood Count 3.21 M/mcL (3.82-4.97); Red Cell Distribution Width 12.3 % (11.5-14.5); Segmented Neutrophils % 74.3 %; White Blood Count 14.3 K/mcL (4.3-11.1)
[2020-01-17 06:28] LABS: Calcium 7.4 mg/dL (8.6-10.3); Potassium 3.8 mEq/L (3.5-5.1)
[2020-01-17 06:29] LABS: Magnesium 1.8 mg/dL (1.6-2.6); Phosphorous 1.9 mg/dL (2.7-4.5)
[2020-01-17] MEDS: 0.9 % Sodium Chloride 1,000 ML IVC SCH ×2 (08:24→21:04)
[2020-01-17] MEDS: Apixaban 5 MG TABLET PO SCH (09:34)
[2020-01-17] MEDS: Aspirin Enteric Coated 81 MG Tablet PO SCH (09:34)
[2020-01-17] MEDS: Ranolazine 500 MG TAB.ER.12H PO SCH ×2 (09:34→21:03)
[2020-01-17] MEDS: Sucralfate 1 GM TABLET PO SCH ×3 (09:34→21:03)
[2020-01-17] MEDS: Piperacillin/Tazobactam 3.375 GM in 0.9 % Sodium Chloride Mini Bag 100 ML IVPB SCH ×3 (09:34→23:23)
[2020-01-17] MEDS: Multivit/Ca/Min/Fe/FA 1 TAB TABLET PO SCH (09:34)
[2020-01-17] MEDS: diazePAM 5 MG TABLET PO SCH (09:34)
[2020-01-17] MEDS: cloNIDine HCl 0.1 MG TABLET PO SCH (09:39)
[2020-01-17] MEDS: Metoprolol XL (24 HR) Succ 50 MG TAB.ER.24H PO SCH (09:39)
[2020-01-17] MEDS ORDERED: Milk and Molasses Enema 200 ML RC SCH (10:30)
[2020-01-17] MEDS ORDERED: Isovue-370 500 ML BOTTLE IVP ONE (10:45)
[2020-01-17] MEDS ORDERED: diazePAM 5 MG TABLET PO PRN (12:20)
[2020-01-17] MEDS: Milk and Molasses Enema 200 ML RC SCH ×3 (17:22→21:05)
[2020-01-17] MEDS ORDERED: Bisacodyl 10 MG RECTAL SUPPOSITORY RC SCH (21:00)
[2020-01-17] MEDS: Bisacodyl 10 MG RECTAL SUPPOSITORY RC SCH (23:23)
[2020-01-18] MEDS: Milk and Molasses Enema 200 ML RC SCH ×2 (04:56→09:29)
[2020-01-18] MEDS: Metoprolol XL (24 HR) Succ 50 MG TAB.ER.24H PO SCH (05:27)
[2020-01-18 06:23] LABS: Basophils % 0.2 %; Eosinophils % 0.2 %; Hematocrit 36.5 % (35.3-44.9); Immature Granulocytes % 2.4 % (0-4); Lymphocytes # 1.2 K/mcL (0.6-4.6); Mean Corpuscular Hemoglobin 31.3 pg (28.0-33.3); Mean Corpuscular Volume 92.2 fL (83.0-100.0); Mean Platelet Volume 10.6 fL (9.4-12.4); Monocytes # 1.4 K/mcL (0.0-1.3); Monocytes % 8.3 %; Neutrophils # 14.1 K/mcL (1.6-8.9); Platelet Count 259 K/mcL (140-400); Red Blood Count 3.96 M/mcL (3.82-4.97); Red Cell Distribution Width 12.6 % (11.5-14.5); Segmented Neutrophils % 81.9 %; White Blood Count 17.2 K/mcL (4.3-11.1)
[2020-01-18 06:27] LABS: Magnesium 1.8 mg/dL (1.6-2.6); Phosphorous 3.3 mg/dL (2.7-4.5)
[2020-01-18 06:29] LABS: Calcium 7.9 mg/dL (8.6-10.3); Potassium 3.7 mEq/L (3.5-5.1)
[2020-01-18 07:00] LABS: Hemoglobin 12.4 g/dL (11.5-15.4)
[2020-01-18] MEDS: Sucralfate 1 GM TABLET PO SCH ×3 (09:28→21:24)
[2020-01-18] MEDS: Multivit/Ca/Min/Fe/FA 1 TAB TABLET PO SCH (09:28)
[2020-01-18] MEDS: Ranolazine 500 MG TAB.ER.12H PO SCH ×2 (09:28→21:23)
[2020-01-18] MEDS: Aspirin Enteric Coated 81 MG Tablet PO SCH (09:28)
[2020-01-18] MEDS: Piperacillin/Tazobactam 3.375 GM in 0.9 % Sodium Chloride Mini Bag 100 ML IVPB SCH (09:29)
[2020-01-18] MEDS: Bisacodyl 10 MG RECTAL SUPPOSITORY RC SCH ×3 (09:29→21:18)
[2020-01-18] MEDS: Ampicillin 1,000 MG in 0.9 % Sodium Chloride Mini Bag 100 ML IVPB SCH ×3 (12:04→23:58)
[2020-01-18] MEDS ORDERED: Milk and Molasses Enema 200 ML RC ONE (16:38)
[2020-01-18] MEDS: Apixaban 5 MG TABLET PO SCH (21:24)
[2020-01-19] MEDS: Ampicillin 1,000 MG in 0.9 % Sodium Chloride Mini Bag 100 ML IVPB SCH (04:56)
[2020-01-19 05:10] LABS: Basophils % 0.3 %; Eosinophils # 0.3 K/mcL (0.0-0.6); Eosinophils % 2.1 %; Hemoglobin 11.5 g/dL (11.5-15.4); Immature Granulocytes % 0.8 % (0-4); Lymphocytes % 16.5 %; Mean Corpuscular HGB Conc 34.8 g/dL (31.6-35.5); Mean Corpuscular Hemoglobin 32.2 pg (28.0-33.3); Mean Corpuscular Volume 92.4 fL (83.0-100.0); Monocytes % 8.7 %; Neutrophils # 8.5 K/mcL (1.6-8.9); Platelet Count 187 K/mcL (140-400); Red Blood Count 3.57 M/mcL (3.82-4.97); Red Cell Distribution Width 12.4 % (11.5-14.5); Segmented Neutrophils % 71.6 %; White Blood Count 11.9 K/mcL (4.3-11.1)
[2020-01-19 05:31] LABS: Calcium 7.8 mg/dL (8.6-10.3); Potassium 3.5 mEq/L (3.5-5.1)
[2020-01-19 07:32] VITALS: BP 195/72
[2020-01-19] MEDS: Aspirin Enteric Coated 81 MG Tablet PO SCH (08:06)
[2020-01-19] MEDS: Multivit/Ca/Min/Fe/FA 1 TAB TABLET PO SCH (08:06)
[2020-01-19] MEDS: Sucralfate 1 GM TABLET PO SCH (08:06)
[2020-01-19] MEDS: Apixaban 5 MG TABLET PO SCH (08:06)
[2020-01-19] MEDS: Metoprolol XL (24 HR) Succ 50 MG TAB.ER.24H PO SCH (08:06)
[2020-01-19] MEDS: Ranolazine 500 MG TAB.ER.12H PO SCH (08:06)
[2020-01-19] MEDS: Bisacodyl 10 MG RECTAL SUPPOSITORY RC SCH (08:09)
== END 2020-01-19 10:44 | disposition home or self-care (01) | DRG 389 ==
LOC: EMEROOARM 11:01 → 3ANU 11:01 → SUATTDRO 13:12 → 3ANU 13:56 → SUATTDRO 01-17 13:47
PROVIDERS: ADMIT Internal Medicine; ATTEND Family Medicine

== ENCOUNTER 2021-04-09 10:38 | Inpatient (IN) ==
[2021-04-09 11:19] LABS: Basophils % 0.5 %; Eosinophils # 0.2 K/mcL (0.0-0.6); Eosinophils % 3.3 %; Hematocrit 39.8 % (35.3-44.9); Hemoglobin 13.3 g/dL (11.5-15.4); Immature Granulocytes % 0.2 % (0-4); Lymphocytes # 2.6 K/mcL (0.6-4.6); Lymphocytes % 41.3 %; Mean Corpuscular HGB Conc 33.4 g/dL (31.6-35.5); Mean Corpuscular Hemoglobin 30.9 pg (28.0-33.3); Mean Corpuscular Volume 92.6 fL (83.0-100.0); Mean Platelet Volume 10.5 fL (9.4-12.4); Monocytes # 0.5 K/mcL (0.0-1.3); Monocytes % 7.6 %; Platelet Count 232 K/mcL (140-400); Red Cell Distribution Width 12.3 % (11.5-14.5); Segmented Neutrophils % 47.1 %; White Blood Count 6.3 K/mcL (4.3-11.1)
[2021-04-09 11:26] LABS: INR 1.6; Prothrombin Time 18.4 Seconds (9.4-12.1)
[2021-04-09 11:28] LABS: Activated Partial Thrombo Time 37.3 Seconds (26.0-36.0)
[2021-04-09 11:35] LABS: BUN/Creatinine Ratio 11 (6-26); Blood Urea Nitrogen 17 mg/dL (8-23); Carbon Dioxide 21 mEq/L (23-29); Chloride 97 mEq/L (98-107); Glucose 108 mg/dL (70-105); Osmolality,Calculated 268 (280-300); Potassium 3.9 mEq/L (3.5-5.1); Sodium 128 mEq/L (136-145); Troponin I < 0.03 ng/mL (< 0.04); eGFR For African Americans 41 (> 60); eGFR For Non-African Americans 34 (> 60)
[2021-04-09] MEDS ORDERED: Isovue-370 500 ML BOTTLE IVP ONE (12:22)
[2021-04-09] MEDS ORDERED: 0.9 % Sodium Chloride 500 ML IVC ONE (12:25)
[2021-04-09] MEDS ORDERED: Morphine Sulfate 2 MG/ML SYRINGE IVP ONE (12:43)
[2021-04-09] MEDS ORDERED: Aspirin 81 MG TAB.CHEW PO ONE (14:43)
[2021-04-09] MEDS ORDERED: Nitroglycerin 0.4 MG TAB.SUBL SL PRN (14:56)
[2021-04-09] MEDS ORDERED: Naloxone 0.4 MG/ML INJ IVP PRN (15:33)
[2021-04-09] MEDS ORDERED: Ondansetron 4 MG/2 ML VIAL IVP PRN (15:33)
[2021-04-09] MEDS ORDERED: diazePAM 5 MG TABLET PO PRN (17:04)
[2021-04-09] MEDS ORDERED: Ringers Solution, Lactated 500 ML IVC SCH (17:15)
[2021-04-09] MEDS: Metoprolol XL (24 HR) Succ 50 MG TAB.ER.24H PO SCH (18:58)
[2021-04-09] MEDS: Ranolazine 500 MG TAB.ER.12H PO SCH (20:22)
[2021-04-09] MEDS: Acetaminophen 325 MG TABLET PO PRN (20:22)
[2021-04-09] MEDS: Sennosides/Docusate Sodium TABLET PO SCH (20:22)
[2021-04-09] MEDS: Apixaban 5 MG TABLET PO SCH (20:23)
[2021-04-09] MEDS ORDERED: Sucralfate 1 GM TABLET PO SCH (21:00)
[2021-04-09] MEDS ORDERED: cloNIDine HCL 0.1 MG TABLET PO SCH (21:00)
[2021-04-10 07:06] LABS: Troponin I < 0.03 ng/mL (< 0.04)
[2021-04-10 08:12] LABS: BUN/Creatinine Ratio 12 (6-26); Blood Urea Nitrogen 16 mg/dL (8-23); Calcium 9.2 mg/dL (8.6-10.3); Carbon Dioxide 19 mEq/L (23-29); Chloride 102 mEq/L (98-107); Glucose 94 mg/dL (70-105); Magnesium 1.5 mg/dL (1.6-2.6); Osmolality,Calculated 275 (280-300); Phosphorous 3.9 mg/dL (2.7-4.5); Potassium 3.5 mEq/L (3.5-5.1); Sodium 132 mEq/L (136-145); eGFR For African Americans 45 (> 60); eGFR For Non-African Americans 37 (> 60)
[2021-04-10] MEDS ORDERED: polyethylene glycoL 3350 17 GM POWD.PACK PO SCH (09:00)
[2021-04-10] MEDS: Apixaban 5 MG TABLET PO SCH ×2 (11:04→20:17)
[2021-04-10] MEDS: cloNIDine HCL 0.1 MG TABLET PO SCH ×3 (11:04→20:17)
[2021-04-10] MEDS: Lactulose Oral Soln 20 GM/30 ML UDC PO SCH (11:04)
[2021-04-10] MEDS: Sennosides/Docusate Sodium TABLET PO SCH ×2 (11:04→20:17)
[2021-04-10] MEDS: Ranolazine 500 MG TAB.ER.12H PO SCH ×2 (11:04→20:17)
[2021-04-10] MEDS: Sucralfate 1 GM TABLET PO SCH ×3 (11:04→20:16)
[2021-04-10] MEDS: amLODIPine 5 MG TABLET PO SCH (11:04)
[2021-04-10] MEDS ORDERED: Magnesium Oxide 400 MG TABLET PO ONE (13:28)
[2021-04-10] MEDS: Metoprolol XL (24 HR) Succ 50 MG TAB.ER.24H PO SCH (17:45)
[2021-04-10] MEDS: Acetaminophen 325 MG TABLET PO PRN (20:17)
[2021-04-10] MEDS ORDERED: Aspirin Enteric Coated 81 MG Tablet PO SCH (21:00)
[2021-04-11] MEDS: cloNIDine HCL 0.1 MG TABLET PO SCH ×2 (03:58→10:11)
[2021-04-11] MEDS: amLODIPine 5 MG TABLET PO SCH (08:10)
[2021-04-11] MEDS: Lactulose Oral Soln 20 GM/30 ML UDC PO SCH (08:11)
[2021-04-11] MEDS: Sennosides/Docusate Sodium TABLET PO SCH (08:11)
[2021-04-11] MEDS: Apixaban 5 MG TABLET PO SCH (08:11)
[2021-04-11] MEDS: Ranolazine 500 MG TAB.ER.12H PO SCH (08:11)
[2021-04-11] MEDS: Sucralfate 1 GM TABLET PO SCH ×2 (08:11→12:13)
[2021-04-11 08:44] LABS: Calcium 9.3 mg/dL (8.6-10.3); Potassium 3.8 mEq/L (3.5-5.1)
[2021-04-11] MEDS ORDERED: Magnesium Oxide 400 MG TABLET PO SCH (09:00)
[2021-04-11 10:50] VITALS: BP 122/73
[2021-04-11 12:11] LABS: Magnesium 1.6 mg/dL (1.6-2.6)
== END 2021-04-11 14:09 | disposition home or self-care (01) | DRG 392 ==
LOC: EMEROOARM 10:38 → CDU 10:38 → SUATTDRO 04-10 15:32 → 3BNU 04-10 16:33
PROVIDERS: ADMIT Internal Medicine; ATTEND Nurse Practitioner